=== PATIENT | female | born 1990 | race Hispanic/Latino ===

== ENCOUNTER 2020-11-02 18:38 | Emergency (ER) | payer OTHER, SELFPAY ==
--- NOTE | ~2020-11-02 | XR_ITS ---
EXAMINATION: XR chest 2V 11/02/2020 19:07 INDICATION: Dizziness. Migraine headaches. PROCEDURE: 2 view chest COMPARISON: No prior studies for comparison. FINDINGS: The lungs are clear. The cardiomediastinal silhouette is within normal limits. There are no pleural effusions. There is no pneumothorax suspected. IMPRESSION: 1: NO ACUTE CARDIOPULMONARY DISEASE. Reviewed, dictated and finalized at location A. CTOR STERILE PROCESSING
[2020-11-02 18:42] VITALS: BP 139/94; PULSE 102; RESP 16; TEMP 36.7; O2SAT 98
[2020-11-02 18:46] VITALS: BP 134/89; PULSE 89; RESP 18; O2SAT 99
--- NOTE | 2020-11-02 18:51 | ECG_ITS ---
Measurements Intervals [place] Rate: 90 P: 42 [place]: 179 QRS: 6 QRSD: 85 T: 35 QT: 343 QTc: 420 Interpretive Statements SINUS RHYTHM BASELINE WANDER- II, III, AVL, AVF, V3-V6 NORMAL ECG Electronically Signed On 11-03-2020 7:03:26 FARM ADVISER by Aaron Duggan D.O.
--- NOTE | 2020-11-02 19:30 | ED.HA ---
HPI - Headache General Chief Complaint: Headache Stated Complaint: Headache, L shoulder pain Time Seen by Provider: 11/02/20 19:03 History of Present Illness HPI Narrative: Left sided headache since this morning. Feels like her usual headache. Associated with nausea. Later developed left sided face tingling and pain in the left trapezius radiating down the left arm. Dull. No change with movement. Related Data Allergies Allergy/AdvReac Type Severity Reaction Status Date / Time No Known Allergies Allergy Verified 11/02/20 18:51 Review of Systems Review of Systems: All systems reviewed & are unremarkable except as noted in HPI and below Constitutional: Constitutional: Denies fever(s) and Denies weakness Eyes: Eyes: Reports no additional eye complaints Cardiovascular: Cardiovascular: Denies chest pain Respiratory: Respiratory: Denies dyspnea Gastrointestinal: Gastrointestinal: Denies abdominal pain and Reports nausea Genitourinary: Genitourinary: Reports no additional female genitourinary complaints Neurologic: Denies dizziness, Reports headache(s), Denies numbness and Denies weakness [facility] Past Medical History Medical History (Updated 11/02/20 @ 20:19 by Say Cavazos MD) Acute appendicitis with localized peritonitis without perforation Acute calculous cholecystitis Surgical History Surgical History (Updated 11/02/20 @ 20:16 by Say Cavazos MD) Hx of cholecystectomy Social History Social History (Updated 11/02/20 @ 20:16 by Say Cavazos MD) Smoking status: Never smoker Alcohol intake: current Exam Const: General: healthy appearing, no acute distress and alert Orientation/consciousness: patient oriented x3 HENMT: Head: normal to inspection Eyes: Conjunctivae: conjunctivae normal Pupils: Equal, round and reactive pupils present EOM: EOMs intact bilaterally Neck: Neck: normal visual inspection and no lymphadenopathy Chest: Chest palpation & inspection: no tenderness Resp: Effort & Inspection: normal respiratory effort Auscultation: clear to auscultation bilaterally, no rales, no rhonchi and no wheezes Cardio: Jugular venous distension: no JVD Rate: regular rate Rhythm: regular rhythm Heart sounds: no murmurs GI: Inspection: non-distended GI Palp: Yes Soft to palpation and No Tenderness to palpation present (GI) Back/Spine/Pelvis: Other: Left trapezius tenderness and increased tone Skin: General skin exam: normal color Rashes: no rashes Wounds: no wounds Neuro: General: patient oriented x3, moves all extremities, no meningeal signs, no focal motor deficits and CN's II-XI intact bilaterally Cranial nerves: Yes Nystagmus not present Speech: normal speech Gait exam (Neuro): Normal gait present Other: 5/5 strength throughout. Normal sensation Extrem: General: no edema Psych: Appearance: well kempt Affect: normal affect Course Vital Signs Vital signs: Vital Signs Temperature 36.7 C 11/02/20 18:42 Pulse Rate 102 H 11/02/20 18:42 Respiratory Rate 16 11/02/20 18:42 Blood Pressure 139/94 H 11/02/20 18:42 Pulse Oximetry 98 11/02/20 18:42 Temperature 36.7 C 11/02/20 18:42 Pulse Rate 89 11/02/20 18:46 Respiratory Rate 18 11/02/20 18:46 Blood Pressure 134/89 11/02/20 18:46 Pulse Oximetry 99 11/02/20 18:46 MDM - Headache MDM Narrative Medical decision making narrative: Headache and arm pain resolved with treatment. Differential Diagnosis Differential diagnosis: Likely migraine and tension headache Medical Records Attestation: I reviewed the patient's medical records. Lab Data Attestation: I reviewed the patient's lab results. Result diagrams: 11/02/20 19:30 11/02/20 19:30 Labs: Lab Results 11/02/20 11/02/20 11/02/20 Range/Units 19:30 19:30 19:30 WBC 10.0 (4.5-10.0) K/mm3 RBC 4.50 (4.2-5.4) M/mm3 Hgb 13.8 (12.0-15.0) g/dL Hct 40.8 (37.0-47.0) % MCV 90.7
[2020-11-02 19:37] LABS: Basophils Percent Auto 0.3 % (0.2-1.2); Eosinophils Absolute Auto 0.5 K/mm3 (0-0.3); Eosinophils Percent Auto 5.3 % (0-4.4); Hematocrit 40.8 % (37.0-47.0); Hemoglobin 13.8 g/dL (12.0-15.0); Immature Granulocyte Absolute 0.03 K/mm3 (0.00-0.031); Immature Granulocyte Percent A 0.3 % (0-0.5); Lymphocytes Absolute Auto 3.25 K/mm3 (0.9-3.2); Lymphocytes Percent Auto 32.5 % (18.3-44.2); Mean Corpuscular HGB Conc 33.8 g/dl (32-36); Mean Corpuscular Hemoglobin 30.7 pg (26-34); Mean Corpuscular Volume 90.7 fl (80-100); Mean Platelet Volume 9.8 fl (7.4-10.4); Monocytes Absolute Auto 0.6 K/mm3 (0.1-0.6); Monocytes Percent Auto 5.6 % (2.6-8.5); Neutrophils Absolute Auto 5.6 K/mm3 (1.3-6.7); Platelet Count Result 314 k/mm3 (150-375); Red Cell Distribution Width 12.7 % (11.5-14.5)
[2020-11-02 19:45] LABS: Prothrombin Time 13.3 Seconds (11.1-14.7)
[2020-11-02 19:46] LABS: Partial Thromboplastin Time 29.4 SECONDS (22.3-36.8)
[2020-11-02 19:48] LABS: Anion Gap 5 mmol/L (8-16); Blood Urea Nitrogen 11 mg/dL (7-17); Calcium 8.6 mg/dL (8.4-10.2); Carbon Dioxide 27 mmol/L (22-30); Chloride 108 mmol/L (98-107); Estimated CRCL calculation 111 ml/min; Estimated Glomerular Filt Rate > 60; Glucose 102 mg/dL (65-105); Potassium 3.7 mmol/L (3.4-5.0); Sodium 140 mmol/L (137-145)
[2020-11-02] MEDS: METOCLOPRAMIDE HCL INJ 10 MG/2 ML VIAL IV PUSH (19:56)
[2020-11-02] MEDS: KETOROLAC 30 MG/ML VIAL (*BKC) IV PUSH (19:57)
[2020-11-02] MEDS: diphenhydrAMINE HCl INJ 50 MG/ML VIAL 25 MG IV PUSH (19:57)
[2020-11-02] MEDS: LORazepam INJ (*CRX) 2 MG/ML VIAL 0.5 MG IV PUSH (19:59)
[2020-11-02 20:00] LABS: Troponin I < 0.012 ng/mL (0.000-0.034)
[2020-11-02 22:15] LABS: Troponin I < 0.012 ng/mL (0.000-0.034)
[2020-11-02 22:21] VITALS: BP 119/73; PULSE 72; RESP 16; TEMP 36.3; O2SAT 99
== END 2020-11-02 22:23 | disposition home or self-care (01) ==
PROVIDERS: Emergency Medicine; Emergency Provider Emergency Medicine; PCP Internal Medicine
DX: M54.12 Radiculopathy, cervical region (principal); G44.209 Tension-type headache, unspecified, not intractable
CPT/HCPCS: 36415; 71046; 80048; 84484; 85025; 85610; 85730; 93005; 96365; 96375; 99284; J0131; J1200; J1885; J2060; J2765

== ENCOUNTER 2021-09-11 15:39 | Outpatient (CLI) | payer OTHER, SELFPAY ==
--- NOTE | ~2021-09-11 | XR_ITS ---
EXAMINATION: XR chest 2V EXAM DATE: 09/11/2021 15:52 INDICATION: Atypical chest pain . Central chest pain since April 2021. TECHNIQUE: Frontal and lateral projections of the chest obtained and reviewed. There is no prior paxton dy for comparison. FINDINGS: The lungs are clear. There are no pleural effusions. The cardiomediastinal silhouette is within normal limits. There is no pneumothorax suspected. Mild upper thoracic dextroscoliosis. IMPRESSION: No acute cardiopulmonary findings. Reviewed, dictated and finalized at location G. DRIER OPERATOR
== END 2021-09-11 15:40 ==
PROVIDERS: PCP Internal Medicine; Visit Provider Internal Medicine
DX: R07.89 Other chest pain (principal)
CPT/HCPCS: 71046

== ENCOUNTER 2023-01-07 21:59 | Emergency (ER) | payer OTHER, SELFPAY ==
--- NOTE | ~2023-01-07 | XR_ITS ---
EXAMINATION: XR chest 2V DATE: 01/07/2023 22:20 INDICATION: Shortness breath and chest pain radiating to the upper back TECHNIQUE: PA and lateral views of the chest were obtained. COMPARISON: Chest radiograph dated 09/11/2021 FINDINGS: The lungs are clear with no focal airspace opacities, pulmonary edema, pleural effusion or pneumothor ax. The cardiomediastinal silhouette is normal. Moderate S-shaped curvature of the thoracic spine wit h mild spondylosis. Cholecystectomy clips in right upper quadrant. IMPRESSION: 1. No acute cardiopulmonary disease. Reviewed, dictated and finalized at location A.
--- NOTE | 2023-01-07 21:59 | ECG_ITS ---
Measurements Intervals [place] Rate: 74 P: 46 [place]: 174 QRS: 6 QRSD: 94 T: 29 QT: 368 QTc: 410 Interpretive Statements SINUS RHYTHM NORMAL ECG COMPARED TO ECG 11/02/2020 18:51:32 NO SIGNIFICANT CHANGES Electronically Signed On 01-08-2023 6:39:07 CDT by Aaron Duggan D.O.
[2023-01-07 22:05] VITALS: BP 113/73; PULSE 89; RESP 16; TEMP 36.7; O2SAT 100
[2023-01-07 22:18] LABS: Basophils Percent Auto 0.3 % (0.2-1.2); Eosinophils Absolute Auto 0.4 K/mm3 (0-0.3); Eosinophils Percent Auto 3.4 % (0-4.4); Hematocrit 40.4 % (37.0-47.0); Hemoglobin 13.8 g/dL (12.0-15.0); Immature Granulocyte Absolute 0.05 K/mm3 (0.00-0.031); Immature Granulocyte Percent A 0.4 % (0-0.5); Lymphocytes Absolute Auto 3.45 K/mm3 (0.9-3.2); Mean Corpuscular HGB Conc 34.2 g/dl (32-36); Mean Corpuscular Hemoglobin 30.6 pg (26-34); Mean Corpuscular Volume 89.6 fl (80-100); Monocytes Absolute Auto 0.7 K/mm3 (0.1-0.6); Monocytes Percent Auto 5.6 % (2.6-8.5); Neutrophils Absolute Auto 8.1 K/mm3 (1.3-6.7); Neutrophils Percent Auto 63.3 % (45.5-73.1); Platelet Count Result 314 k/mm3 (150-375); Red Blood Count 4.51 M/mm3 (4.2-5.4); Red Cell Distribution Width 13.1 % (11.5-14.5); White Blood Count 12.8 K/mm3 (4.5-10.0)
[2023-01-07 22:28] LABS: INR 0.9; Prothrombin Time 12.7 Seconds (11.1-14.7)
[2023-01-07 22:29] LABS: Partial Thromboplastin Time 27.9 SECONDS (22.3-36.8)
[2023-01-07 22:36] LABS: Alanine Aminotransferase 22 U/L (6-35); Albumin Level 4.4 g/dL (3.5-5.1); Alkaline Phosphatase 69 U/L (38-126); Anion Gap 7 mmol/L (8-16); Aspartate Amino Transferase 22 U/L (14-36); Bilirubin,Total 0.3 mg/dL (0.2-1.3); Blood Urea Nitrogen 8 mg/dL (7-17); Calcium 8.9 mg/dL (8.4-10.2); Carbon Dioxide 26 mmol/L (22-30); Chloride 105 mmol/L (98-107); Estimated CRCL calculation 109 ml/min; Estimated Glomerular Filt Rate > 60; Glucose 118 mg/dL (65-110); Lipase 102 U/L (23-300); Potassium 3.8 mmol/L (3.4-5.0); Sodium 138 mmol/L (137-145)
[2023-01-07 22:47] LABS: Troponin I < 0.012 ng/mL (0.000-0.034)
[2023-01-08] VITALS (36 sets, daily range): BP systolic 98–125; BP diastolic 44–81; PULSE 69–100; RESP 12–27; TEMP 36.4–36.6; O2SAT 97–100
[2023-01-08] MEDS: ASPIRIN 81 MG CHEWABLE TABLET 324 MG PO (00:06)
--- NOTE | 2023-01-08 02:28 | ED.CHESTPAIN ---
HPI - Chest Pain General Chief Complaint: Chest Pain <KENYA Baires Last Filed: 01/08/23 04:16> Stated Complaint: chest pain <KENYA Baires Last Filed: 01/08/23 04:16> Time Seen by Provider: 01/08/23 00:11 <KENYA Baires Last Filed: 01/08/23 04:16> Source: patient <KENYA Baires Last Filed: 01/08/23 04:16> Mode of arrival: ambulatory <KENYA Baires Last Filed: 01/08/23 04:16> Limitations: no limitations <KENYA Baires Last Filed: 01/08/23 04:16> History of Present Illness HPI narrative: Patient is a 32-year-old female who presents ED with report of left-sided chest pain. Patient first reported having an episode of pain in her left upper chest radiating to her left shoulder and left upper back yesterday. Pain lasted intermittently for about 3 hours before resolving. She experienced another episode of chest pain tonight, which was more severe and persistent, which prompted her presentation. She has not tried anything for the pain. Denies history of similar chest pain. She reports having very mild discomfort with taking a deep breath, no difficulty breathing, shortness of breath, or aggravation of pain with exertion. Denies any nausea, diaphoresis, abdominal pain. Denies any recent fevers, cough or cold symptoms, lower extremity pain or swelling. Patient does not have history of hypertension, hyperlipidemia, diabetes mellitus, family history of heart disease. She is a smoker. She is not on any hormonal control. Denies history of blood clots. <KENYA Baires Last Filed: 01/08/23 04:16> Related Data Allergies/Adverse Reactions: Allergies Allergy/AdvReac Type Severity Reaction Status Date / Time No Known Allergies Allergy Verified 11/02/20 18:51 <KENYA Baires Last Filed: 01/08/23 04:16> Review of Systems Review of Systems: CONSTITUTIONAL: Denies fever, chills, or sweats. ENT: Denies rhinorrhea, congestion, sore throat. CARDIOVASCULAR: See HPI. RESPIRATORY: See HPI. GASTROINTESTINAL: Denies abdominal pain, nausea, vomiting. MUSCULOSKELETAL: See HPI. NEUROLOGIC: Denies headache, numbness, or weakness. <Karley Peña PA-C - Last Filed: 01/08/23 04:16> All systems reviewed & are unremarkable except as noted in HPI and below <Karley Peña PA-C - Last Filed: 01/08/23 04:16> [facility] Past Medical History Medical History: Medical History Acute appendicitis with localized peritonitis without perforation Acute calculous cholecystitis <Karley Peña PA-C - Last Filed: 01/08/23 04:16> Surgical History Surgical History: Surgical History Hx of cholecystectomy <Karley Peña PA-C - Last Filed: 01/08/23 04:16> Social History Social History: Social History Smoking status: Current every day smoker Alcohol intake: current <Karley Peña PA-C - Last Filed: 01/08/23 04:16> Exam Narrative: GENERAL: Well appearing, obese with BMI of 31.5, non-toxic, in no acute distress. HEAD: Normocephalic, atraumatic. NECK: Supple. No adenopathy, no masses. RESPIRATORY: Airway patent, respirations nonlabored. Clear to auscultation bilaterally, no rales, rhonchi, wheezing. CARDIOVASCULAR: Regular rate and rhythm without murmurs, rubs, or gallops. Peripheral pulses 2+ and equal bilaterally. ABDOMINAL: Soft, nontender, nondistended, no hepatosplenomegaly. Normoactive BS. MUSCULOSKELETAL: Moves all extremities. Strength/ROM intact without gross deformities. No chest wall tenderness to palpation. No edema. No calf tenderness. SKIN: Warm, dry, normal color. No rashes. NEURO: A&O X3. Speech clear. Cranial nerves II-XII grossly intact. Steady
[2023-01-08 03:22] LABS: Troponin I < 0.012 ng/mL (0.000-0.034)
== END 2023-01-08 03:59 | disposition home or self-care (01) ==
PROVIDERS: Emergency Medicine; Emergency Provider Physician Assistant; PCP Internal Medicine
DX: R07.89 Other chest pain (principal)
CPT/HCPCS: 36415; 71046; 80053; 83690; 84484; 85025; 85610; 85730; 93005; 99284; A9270

== ENCOUNTER 2025-02-25 05:05 | Emergency (ER) | payer OTHER, SELFPAY ==
--- NOTE | ~2025-02-25 | CT_ITS ---
CT of the Abdomen and Pelvis: Indication: Abdominal pain Technique: 2.5 mm axial scans were obtained through the abdomen and pelvis following intravenous adm inistration of 100 cc of Omnipaque 350. Dose reduction technique was used on this scan by utilizing a utomated exposure control and iterative reconstruction technique. The dose-length product (DLP) was 5 19.08 mGy-cm. Findings: Scans through the lung bases are unremarkable. The liver, spleen, pancreas, adrenals and kidneys are within normal limits. Cholecystectomy clips are present. No evidence of aortic aneurysm. No lymphadenopathy. No bowel obstruction or bowel wall thickening. Probable mildly dilated appendix to 10 mm, adjacent to the right ovary. No abscess or free air. Images through the pelvis were performed. Urinary bladder unremarkable. No significant pelvic/adnexal mass seen. No ascites. Impression: Probable mildly dilated appendix adjacent to the right ovary. Early acute appendicitis is a considera tion. Correlate clinically. No abscess or free air. Reviewed, dictated and finalized at [facility]. Impression: Probable mildly dilated appendix adjacent to the right ovary. Early acute appen dicitis is a consideration. Correlate clinically. No abscess or free air.
--- NOTE | ~2025-02-25 | US_ITS ---
EXAMINATION: US pelvic complete w TV DATE: 02/25/2025 09:40 INDICATION: Abdominal pain. Possible right hydrosalpinx. TECHNIQUE: Multiple transabdominal and endovaginal sonographic images of the pelvis were obtained. COMPARISON: None. FINDINGS: The uterus measures 10.4 x 5.3 x 6.7 cm. The endometrial complex measures 9 mm in thickness. The rig ht ovary measures 3.4 x 2.6 x 2.4 cm. 1.8 cm anechoic right ovarian follicle. Anterior to the right o vary is a 1 cm anechoic likely peritoneal inclusion cyst along the deep margin of the anterior pelvic wall. The left ovary measures 2.8 x 2.0 x 1.9 cm. Basilar flow identified at both ovaries on color D oppler. On the cine images of the right adnexa there is a right hydrosalpinx measuring up to 6 mm in diameter which corresponds to the fluid-filled structure identified on the prior CT. Review of prior CT imaging demonstrates postoperative changes along the short remaining stump of the appendix post pr ior appendectomy. There is no free fluid in the pelvis. IMPRESSION: 1. Uterus and bilateral ovaries are unremarkable with small right hydrosalpinx. Reviewed, dictated and finalized at location [facility].
--- OUTSIDE RECORDS SUMMARY | 2025-02-25 05:07 | XMS_ITS | Patient Health Record ---
Author Organization [facility] [employer] Address [address] [place] [address] Care Team Providers Care Change Management Specialist Name Role Phone CORNELIUS JUAREZ Primary Care Provider Kathryn Wall Unavailable [phone] Allergies No Known Allergies Reason For Referral No Information Medications Medication SIG (Take, Route, Frequency, Duration) Notes Start Date End Date Status Venlafaxine HCl ER 37.5 MG 1 capsule wit h food Orally Once a day; Duration: 7 days 08/10/2024 Active Venlafaxine HCl ER 75 MG 1 capsule with food Orally Once a day; Duration: 30 days 08/10/2024 Active Paxil 40 MG 1 tablet in the morn ing Orally Once a day Active Social History Tobacco Use: Social History Observation Description Date Details (start date - stop date) Current Smoker 08/26/2016 - NA Sex Assigned At : Social History Observation Description Sex Assigned At Female Household Question Answer Notes Marital status: Number of adults in household: 2 Number of children in household: 3 Level of education: finished high school 10th gr [employer] and GED Sexual History Question Answer Notes Had sex in the past 12 months (vaginal, oral, or anal)? Yes with Men only Tobacco Control (Standard) Question Answer Notes Tobacco use: Current smoker When did you start smoking? 08/26/2016 How often do you smoke cigarettes? Every day How many cigarettes a day do you smoke? 6-10 How soon after you wake up d o you smoke your first cigarette? 6-30 minutes Are you interested in quitting? Thinking about q uitting AUDIT-C (Standard) Question Answer Notes Did you have a drink contain ing alcohol in the past year? Yes How often did you have six o r more drinks on one occasion in the past year? Less than monthly (1 point) How many drinks did you have on a typical day when you were drinking in the past year? 1 or 2 drinks (0 point) How often did you have a dri nk containing alcohol in the past year? Monthly or less (1 point) Points 2 Interpretation Negative Problems Problem Type SNOMED Code ICD Code Onset Dates Problem Status W/U Status Risk Notes Problem Primary insomnia (2725757) Primary insomnia (F51.01) Active confirmed Problem Tobacco use (439067911) Tobacco use (Z72.0) Active confirmed Problem Moderate recurrent major depression (45692522) MDD (major depressive disorder), recurrent episode, moderate (F33.1) Active confirmed Problem Generalized anxiety disorder (79375390) Anxiety, generalized (F41.1) Active confirmed Vital Signs Heart Rate 96 /min 08/10/2024 Blood pressure diastolic 93 mm Hg 08/10/2024 Weight-kg 85 kg 08/10/2024 Blood pressure systolic 109 mm Hg 08/10/2024 Weight 187.4 lbs 08/10/2024 Encounters Encounter Location Date Provider Diagnosis [facility] [employer] [facility], [address] [address] 08/10/2024 Kathryn Santiago Tobacco use Z72.0 ; MDD (major depressive disorder), recurrent episode, moderate F33.1 ; Anxiety, generalized F41.1 and Primary insomnia F51.01 [facility] [employer] [address] [address] 09/08/2024 Kathryn Santiago [facility] [employer] [address] [address] 08/11/2024 Kathryn Santiago Assessments Encounter Date Diagnosis (ICD Code) Assessment Notes Treatment Notes Treatment Clinical Notes Section Notes 08/10/2024 Tobacco use (ICD-10 - Z72.0) Deciding About Using Medicines To Quit Smoking material was published, Stopping Smokeless Tobacco Use: Care Instructions material was published, Learning About Benefits of Quitting Smoking material was published, Quitting Tobacco: Care Instructions material was published Presently taking Paxil 40 mg daily 1. Depression Paxil 40 mg daily - no refill needed today Add Effexor 37.5 mg in am for 1 week then increase to Effexor 75 mg daily in am discuss and educated on medication options, educated on all rx, benefits, side effects, risk, obtain labs PCP 2. Anxiety- Paxil 40 mg daily Effexor 3. Tobacco use no Vaping- Do not smoke. Nicotine and other chemicals in cigarettes and cigars can cause lung damage. Ask your healthcare provider for information if you currently smoke and need help to quit. E-cigarettes or smokeless tobacco still contain nicotine. Talk to your healthcare provider before you use these products. education on decrease to stopping nicotine products and stop smoking hotline given 4. Insomnia sleep hygiene refer to therapy MONICA http__s://www.[facility].nih.gov/health/ topics/mental-hea lth-medications http__s://www.nam i.org/About-Menta l-Illness/Treatme nts/Mental-Health -Medications http__s://www.[employer]/tato nirv-zwp-ifvksuff -marijuana-adhd/ http__s://www.nam i.Tindie/About-Menta l-Illness/Mental- Health-Conditions http__s://MyScreen/depress ion/the-cognitive -frrcmbji-sn-pizh ession#treatments http___s://www.[facility].nih.gov/health /topics/mental-he alth-medications http___s://www. mi.org/About-Ment al-Illness/Treatm ents/Mental-Healt h-Medications educated on all medications, benefits, side effects and risk, and educated on depression, anxiety, and ADHD, mood d/o and educated on compliance of medications, metabolic and movement d/o education appointment is, continue therapy discussion with patient about course of treatment and patient instructions. education on serotonin syndrome SSRI/SNRI side effects discussed including but not limited to, gastric upset, nausea, vomiting, diarrhea and/or constipation, weight changes, sexual side effects including loss of libido, increased suicidal thoughts/behavior s in children and young adults, and serotonin syndrome. Second generation antipsychotics (SGAs) have metabolic syndrome issues with weight gain, increase in prolactin, increased waist circumference, increased lipids, and increased glucose. Thus routine monitoring of weight, metabolic labs, etc. is indicated. A general rank ordering of antipsychotics that have the greatest to the least risk of metabolic effects is olanzapine, quetiapine, risperidone, ziprasidone, and aripiprazole. However, weight gain can occur with all of these drugs and considerable variability exists among patients receiving the same drug regarding the risk of metabolic effects. Anti-psychotic agents not only increase the risk of metabolic disorder, they also increase the risk of CVA, akathisia, and movement disorders including EPS or tardive dyskinesia (more common with first generation antipsychotics) and more. Medication Management and Follow-Up - Plan: will schedule in 3-4 weeks to follow up Schedule Therapy schedule MONICA - Schedule follow-up appointments to monitor the patient's response to the medication regimen. - Reinforce the importance of avoiding recreational drug use due to potential neurotoxicity and interactions with prescribed medications. 08/10/2024 MDD (major depressive disorder), recurrent episode, moderate (ICD-10 - F33.1) Preventing Depression From Coming Back: Care Instructions material was published, Depression Treatment: Care Instructions material was published, Learning About Depression Screening material was published Presently taking Paxil 40 mg daily 1. Depression Paxil 40 mg daily - no refill needed today Add Effexor 37.5 mg in am for 1 week then increase to Effexor 75 mg daily in am discuss and educated on medication options, educated on all rx, benefits, side effects, risk, obtain labs PCP 2. Anxiety- Paxil 40 mg daily Effexor 3. Tobacco use no Vaping- Do not smoke. Nicotine and other chemicals in cigarettes and cigars can cause lung damage. Ask your healthcare provider for information if you currently smoke and need help to quit. E-cigarettes or smokeless tobacco still contain nicotine. Talk to your healthcare provider before you use these products. education on decrease to stopping nicotine products and stop smoking hotline given 4. Insomnia sleep hygiene refer to therapy MONICA http__s://www.nim h.nih.gov/health/ topics/mental-hea lth-medications http__s://www.nam i.org/About-Menta l-Illness/Treatme nts/Mental-Health -Medications http__s://www.[employer]/tato fedi-bvw-vklppyma -marijuana-adhd/ http__s://www.nam i.org/About-Menta l-Illness/Mental- Health-Conditions http__s://psychce ntral.com/depress ion/the-cognitive -szgjbdbs-dx-raru ession#treatments http___s://www.ni .nih.gov/health /topics/mental-he alth-medications http___s://www.na mi.org/About-Ment al-Illness/Treatm ents/Mental-Healt h-Medications educated on all medications, benefits, side effects and risk, and educated on depression, anxiety, and ADHD, mood d/o and educated on compliance of medications, metabolic and movement d/o education appointment is, continue therapy discussion with patient about course of treatment and patient instructions. education on serotonin syndrome SSRI/SNRI side effects discussed including but not limited to, gastric upset, nausea, vomiting, diarrhea and/or constipation, weight changes, sexual side effects including loss of libido, increased suicidal thoughts/behavior s in children and young adults, and serotonin syndrome. Second generation antipsychotics (SGAs) have metabolic syndrome issues with weight gain, increase in prolactin, increased waist circumference, increased lipids, and increased glucose. Thus routine monitoring of weight, metabolic labs, etc. is indicated. A general rank ordering of antipsychotics that have the greatest to the least risk of metabolic effects is olanzapine, quetiapine, risperidone, ziprasidone, and aripiprazole. However, weight gain can occur with all of these drugs and considerable variability exists among patients receiving the same drug regarding the risk of metabolic effects. Anti-psychotic agents not only increase the risk of metabolic disorder, they also increase the risk of CVA, akathisia, and movement disorders including EPS or tardive dyskinesia (more common with first generation antipsychotics) and more. Medication Management and Follow-Up - Plan: will schedule in 3-4 weeks to follow up Schedule Therapy schedule MONICA - Schedule follow-up appointments to monitor the patient's response to the medication regimen. - Reinforce the importance of avoiding recreational drug use due to potential neurotoxicity and interactions with prescribed medications. 08/10/2024 Anxiety, generalized (ICD-10 - F41.1) Learning About Generalized Anxiety Disorder material was published, Generalized Anxiety Disorder: Care Instructions material was published, Learning About Anxiety Disorders material was published Presently taking Paxil 40 mg daily 1. Depression Paxil 40 mg daily - no refill needed today Add Effexor 37.5 mg in am for 1 week then increase to Effexor 75 mg daily in am discuss and educated on medication options, educated on all rx, benefits, side effects, risk, obtain labs PCP 2. Anxiety- Paxil 40 mg daily Effexor 3. Tobacco use no Vaping- Do not smoke. Nicotine and other chemicals in cigarettes and cigars can cause lung damage. Ask your healthcare provider for information if you currently smoke and need help to quit. E-cigarettes or smokeless tobacco still contain nicotine. Talk to your healthcare provider before you use these products. education on decrease to stopping nicotine products and stop smoking hotline given 4. Insomnia sleep hygiene refer to therapy MONICA http__s://www.[facility].nih.gov/health/ topics/mental-hea lth-medications http__s://www.nam i.org/About-Menta l-Illness/Treatme nts/Mental-Health -Medications http__s://www.[employer]/tato eyqp-ivh-icmumnhr -marijuana-adhd/ http__s://www.nam i.Tindie/About-Menta l-Illness/Mental- Health-Conditions http__s://MyScreen/depress ion/the-cognitive -srevenea-ot-eaxp ession#treatments http___s://www.[facility].nih.gov/health /topics/mental-he alth-medications http___s://www.na mi.org/About-Ment al-Illness/Treatm ents/Mental-Healt h-Medications educated on all medications, benefits, side effects and risk, and educated on depression, anxiety, and ADHD, mood d/o and educated on compliance of medications, metabolic and movement d/o education appointment is, continue therapy discussion with patient about course of treatment and patient instructions. education on serotonin syndrome SSRI/SNRI side effects discussed including but not limited to, gastric upset, nausea, vomiting, diarrhea and/or constipation, weight changes, sexual side effects including loss of libido, increased suicidal thoughts/behavior s in children and young adults, and serotonin syndrome. Second generation antipsychotics (SGAs) have metabolic syndrome issues with weight gain, increase in prolactin, increased waist circumference, increased lipids, and increased glucose. Thus routine monitoring of weight, metabolic labs, etc. is indicated. A general rank ordering of antipsychotics that have the greatest to the least risk of metabolic effects is olanzapine, quetiapine, risperidone, ziprasidone, and aripiprazole. However, weight gain can occur with all of these drugs and considerable variability exists among patients receiving the same drug regarding the risk of metabolic effects. Anti-psychotic agents not only increase the risk of metabolic disorder, they also increase the risk of CVA, akathisia, and movement disorders including EPS or tardive dyskinesia (more common with first generation antipsychotics) and more. Medication Management and Follow-Up - Plan: will schedule in 3-4 weeks to follow up Schedule Therapy schedule MONICA - Schedule follow-up appointments to monitor the patient's response to the medication regimen. - Reinforce the importance of avoiding recreational drug use due to potential neurotoxicity and interactions with prescribed medications. 08/10/2024 Primary insomnia (ICD-10 - F51.01) Insomnia: Care Instructions material was published, Learning About Sleeping Well material was published Presently taking Paxil 40 mg daily 1. Depression Paxil 40 mg daily - no refill needed today Add Effexor 37.5 mg in am for 1 week then increase to Effexor 75 mg daily in am discuss and educated on medication options, educated on all rx, benefits, side effects, risk, obtain labs PCP 2. Anxiety- Paxil 40 mg daily Effexor 3. Tobacco use no Vaping- Do not smoke. Nicotine and other chemicals in cigarettes and cigars can cause lung damage. Ask your healthcare provider for information if you currently smoke and need help to quit. E-cigarettes or smokeless tobacco still contain nicotine. Talk to your healthcare provider before you use these products. education on decrease to stopping nicotine products and stop smoking hotline given 4. Insomnia sleep hygiene refer to therapy MONICA http__s://www.nim h.nih.gov/health/ topics/mental-hea lth-medications http__s://www.nam i.org/About-Menta l-Illness/Treatme nts/Mental-Health -Medications http__s://www.[employer]/tato gilc-wyd-szvboapl -marijuana-adhd/ http__s://www.nam i.org/About-Menta l-Illness/Mental- Health-Conditions http__s://psychce ntral.com/depress ion/the-cognitive -gwepkxyn-jp-fwyk ession#treatments http___s://www.[facility].nih.gov/health /topics/mental-he alth-medications http___s://www.na mi.org/About-Ment al-Illness/Treatm ents/Mental-Healt h-Medications educated on all medications, benefits, side effects and risk, and educated on depression, anxiety, and ADHD, mood d/o and educated on compliance of medications, metabolic and movement d/o education appointment is, continue therapy discussion with patient about course of treatment and patient instructions. education on serotonin syndrome SSRI/SNRI side effects discussed including but not limited to, gastric upset, nausea, vomiting, diarrhea and/or constipation, weight changes, sexual side effects including loss of libido, increased suicidal thoughts/behavior s in children and young adults, and serotonin syndrome. Second generation antipsychotics (SGAs) have metabolic syndrome issues with weight gain, increase in prolactin, increased waist circumference, increased lipids, and increased glucose. Thus routine monitoring of weight, metabolic labs, etc. is indicated. A general rank ordering of antipsychotics that have the greatest to the least risk of metabolic effects is olanzapine, quetiapine, risperidone, ziprasidone, and aripiprazole. However, weight gain can occur with all of these drugs and considerable variability exists among patients receiving the same drug regarding the risk of metabolic effects. Anti-psychotic agents not only increase the risk of metabolic disorder, they also increase the risk of CVA, akathisia, and movement disorders including EPS or tardive dyskinesia (more common with first generation antipsychotics) and more. Medication Management and Follow-Up - Plan: will schedule in 3-4 weeks to follow up Schedule Therapy schedule MONICA - Schedule follow-up appointments to monitor the patient's response to the medication regimen. - Reinforce the importance of avoiding recreational drug use due to potential neurotoxicity and interactions with prescribed medications. 08/10/2024 Other Learning About Depression Screening material was printed, Venlafaxine Extended Release Oral Capsule (VENLAFAXINE SUSTAINED-RELEA SE - ORAL) material was published Presently taking Paxil 40 mg daily 1. Depression Paxil 40 mg daily - no refill needed today Add Effexor 37.5 mg in am for 1 week then increase to Effexor 75 mg daily in am discuss and educated on medication options, educated on all rx, benefits, side effects, risk, obtain labs PCP 2. Anxiety- Paxil 40 mg daily Effexor 3. Tobacco use no Vaping- Do not smoke. Nicotine and other chemicals in cigarettes and cigars can cause lung damage. Ask your healthcare provider for information if you currently smoke and need help to quit. E-cigarettes or smokeless tobacco still contain nicotine. Talk to your healthcare provider before you use these products. education on decrease to stopping nicotine products and stop smoking hotline given 4. Insomnia sleep hygiene refer to therapy MONICA http__s://www.[facility].nih.gov/health/ topics/mental-hea lth-medications http__s://www.nam i.org/About-Menta l-Illness/Treatme nts/Mental-Health -Medications http__s://www.[employer]/tato pjwk-teo-kctpzlef -marijuana-adhd/ http__s://www.nam i.Tindie/About-Menta l-Illness/Mental- Health-Conditions http__s://MyScreen/depress ion/the-cognitive -cvsxmscf-ke-wmvf ession#treatments http___s://www.[facility].nih.gov/health /topics/mental-he alth-medications http___s://www.na mi.org/About-Ment al-Illness/Treatm ents/Mental-Healt h-Medications educated on all medications, benefits, side effects and risk, and educated on depression, anxiety, and ADHD, mood d/o and educated on compliance of medications, metabolic and movement d/o education appointment is, continue therapy discussion with patient about course of treatment and patient instructions. education on serotonin syndrome SSRI/SNRI side effects discussed including but not limited to, gastric upset, nausea, vomiting, diarrhea and/or constipation, weight changes, sexual side effects including loss of libido, increased suicidal thoughts/behavior s in children and young adults, and serotonin syndrome. Second generation antipsychotics (SGAs) have metabolic syndrome issues with weight gain, increase in prolactin, increased waist circumference, increased lipids, and increased glucose. Thus routine monitoring of weight, metabolic labs, etc. is indicated. A general rank ordering of antipsychotics that have the greatest to the least risk of metabolic effects is olanzapine, quetiapine, risperidone, ziprasidone, and aripiprazole. However, weight gain can occur with all of these drugs and considerable variability exists among patients receiving the same drug regarding the risk of metabolic effects. Anti-psychotic agents not only increase the risk of metabolic disorder, they also increase the risk of CVA, akathisia, and movement disorders including EPS or tardive dyskinesia (more common with first generation antipsychotics) and more. Medication Management and Follow-Up - Plan: will schedule in 3-4 weeks to follow up Schedule Therapy schedule MONICA - Schedule follow-up appointments to monitor the patient's response to the medication regimen. - Reinforce the importance of avoiding recreational drug use due to potential neurotoxicity and interactions with prescribed medications. Plan Of Treatment Pending Test Test Name Order Date UDT 08/10/2024 Insurance Providers Payer Name Payer Address Payer Phone Subscriber Number Group Number Insured Name Patient Relationship to Insured Coverage Start Date Coverage End Date [facility] [address] [place] [address] [id number] SAYDA COLVIN Self - patient is the insured Medical (General) History Medical History History ICD Code Past Psychiatric History: Anxiety Disord er abdominal aortic aneurysm: No atrial fibrillation: No chronic fatigue syndrome: No essential tremor: No hyperlipidemia: No hypertension: No Parkinson's disease: No restless leg syndrome: No stroke: No subdural hematoma: No type 1 diabetes mellitus: No type 2 diabetes mellitus: No vitamin B12 deficiency: No vitamin D deficiency: No Surgical History Surgery Date(Month/Year) appendectomy galbladder removal tubal
--- OUTSIDE RECORDS SUMMARY | 2025-02-25 05:07 | XMS_ITS | Data Portability ---
Author Organization [place] - [facility], Main Office Address [address] [place] [id number] Care Team Providers Care Hydraulic Riveter Name Role Phone JACQUELINE CROFT Primary Care Provider Assessment Encounter Date Assessment Date Assessment LastModified by Organization Details LastModified Time 08/10/2024 08/10/2024 > 75 minutes were spent directly with pt providing high school counselor and care Not available 08/10/2024 15:50:18 11/16/2024 11/16/2024 Pt Position, sitting, Procedure Explained, verbal consent obtained, Standard Precautions Used, 23 g butterfly, Location, RT AC Space, # of Attempts 1, Successful, Pressure and Clean Bandage Applied, No Redness/Swelli ng at Site, Pt Tolerated Well, 2 SST, 2 LAV collected. Automatic Thread Winder: Olga DORMAN. Not available 11/16/2024 12:13:58 Plan of Treatment Reminders Order Date Submit Date Provider Last Modified By Organization Details Last Modified Time Details Appointments InPerson; PE Routine- 60 2024 09:00A M Jacqueline Croft STOCK FEEDER Not available Not available Not available InPerson; Acute Complex 2024 08:30A M Jacqueline Croft STOCK FEEDER Not available Not available Not available Lab Hepatitis C IgG Ab, qual, serum 2024 025 [facility], [address], [address], [place], [address], 11/23/2024 11:11:35 HIV 1 + 2 RNA panel, REYNOLD+probe , serum or plasma 2024 025 [facility], [address], [address], [place], [address], 11/23/2024 11:11:34 TSH, ultra-sen sitive, serum 2024 025 [facility], [address], [address], [place], [address], 11/23/2024 11:11:36 CBC w/ auto diff 2024 025 [facility], [address], [address], [place], [address], 11/23/2024 11:11:31 lipid panel, serum 2024 025 [facility], [address], [address], [place], [address], 11/23/2024 11:11:33 HbA1c (hemoglob in A1c), blood 2024 025 [facility], [address], [address], [place], [address], 11/23/2024 11:11:34 CMP, serum or plasma 2024 025 [facility], [address], [address], [place], [address], 11/23/2024 11:11:32 HbA1c (hemoglob in A1c), blood 2023 024 [facility], [address], [address], [place], [address], 08/11/2024 08:24:05 CMP, serum or plasma 2023 024 [facility], [address], [address], [place], [address], 08/11/2024 08:24:05 lipid panel, serum 2023 024 [facility], [address], [address], [place], [address], 08/11/2024 08:24:05 Referral psychiatr ist referral 2024 025 [email or web address] [facility], [address], [place], [address], 01/11/2025 09:12:02 psychiatr ist referral 2023 024 [facility], [address] [facility] [address], [place], [address], 10/05/2024 09:52:19 Procedures None recorded. Surgeries None recorded. Imaging None recorded. Medication Orders Mounjaro 2.5 mg/0.5 mL subcutane ous pen injector 2024 025 [id number] 0524 [id number], [address], [place], [place], [id number], 11/17/2024 19:15:44 Mounjaro 5 mg/0.5 mL subcutane ous pen injector 2024 025 [email or web address] [facility] #40406, [address], [place], [place], [id number], 11/20/2024 17:09:47 paroxetin e 40 mg tablet [address] [facility], [address], [place], [id number], 11/16/2024 12:36:20 buspirone 10 mg tablet 2024 025 [facility] #67380, [address], [place], [id number], 11/16/2024 12:10:52 venlafaxi ne 75 mg tablet 2023 024 [email or web address] Not available 11/12/2024 14:18:21 meloxicam 7.5 mg tablet 2023 025 [id number], [address] [place], [address], 11/16/2024 12:00:47 cyclobenz aprine 5 mg tablet 2023 025 [id number], [address] [place], [address], 11/16/2024 12:00:47 Patient TargetsNo targets recorded. Patient Instructions Encounter Date Encounter Id Patient Instructions Last Modified By Organization Details Last Modified Time 08/10/2024 [id number] neck spasm: care instructions Not available 08/10/2024 15:23:00 neck spasm: exercises Not available 08/10/2024 15:25:45 neck: exercises Not available 08/10/2024 15:25:45 11/16/2024 [id number] tetanus and diphtheria booster: care instructions Not available 11/16/2024 12:10:47 type 2 diabetes: care instructions Not available 11/16/2024 12:10:47 Reason for Referral Psychiatrist Referral for Mi xed anxiety and depressive disorder Referring Physician: Jacqueline Croft, Family Medicine, Encounter Date: 08/10/2024 Psychiatrist Referral for Mi xed anxiety and depressive disorder Referring Physician: Jacqueline Croft Family Medicine, Encounter Date: 11/16/2024 Results Created Date Observation Date Name Description Value Unit Range Abnormal Flag Note LastModifiedBy Organization Detail LastModifiedTime 08/10/20 24 08/11/2024 COMP. METAB OLIC PANEL (14) glucose COMMEN T mg/dL Test not perfo rmed. Serum was in conta ct with cells when recei dona which will make the resul t inacc urate . Not Available [facility] ([facility]) [address] [facility] [place], [address], 08/11/2024 08:24:04 08/10/20 24 08/11/2024 COMP. METAB OLIC PANEL (14) BUN 11 mg/dL 6-20 normal Not Available [facility] ([facility]) [address] [facility] [place], [address], 08/11/2024 08:24:04 08/10/20 24 08/11/2024 COMP. METAB OLIC PANEL (14) creatinine 0.78 mg/dL 0.57-1 .00 normal Not Available [facility] ([facility]) [address], [place], [address], 08/11/2024 08:24:04 08/10/20 24 08/11/2024 COMP. METAB OLIC PANEL (14) eGFR 101 mL/mi n/1.7 3 >59 normal Not Available [facility] ([facility]) [address], [place], [address], 08/11/2024 08:24:04 08/10/20 24 08/11/2024 COMP. METAB OLIC PANEL (14) BUN/creatini ne ratio 14 9-23 normal Not Available [facility] ([facility]) [address] [place], [address], 08/11/2024 08:24:04 08/10/20 24 08/11/2024 COMP. METAB OLIC PANEL (14) sodium 138 mmol/ L 134-14 4 normal Not Available [facility] ([facility]) [address] [place] [place], [address], 08/11/2024 08:24:04 08/10/20 24 08/11/2024 COMP. METAB OLIC PANEL (14) potassium COMMEN T mmol/ L Test not perfo rmed. Serum was in conta ct with cells when recei dona which will make the resul t inacc urate . Not Available [facility] ([facility]) [address] [facility] [place], [address], 08/11/2024 08:24:04 08/10/20 24 08/11/2024 COMP. METAB OLIC PANEL (14) chloride 101 mmol/ L 96-106 normal Not Available [facility] ([facility]) [address] [facility] [place], [address], 08/11/2024 08:24:04 08/10/20 24 08/11/2024 COMP. METAB OLIC PANEL (14) carbon dioxide, total 19 mmol/ L 20-29 below low normal Not Available [facility] ([facility]) [address] [place] [place], [address], 08/11/2024 08:24:04 08/10/20 24 08/11/2024 COMP. METAB OLIC PANEL (14) calcium 9.6 mg/dL 8.7-10 .2 normal Not Available [facility] ([facility]) [address] [place] [place], [address], 08/11/2024 08:24:04 08/10/20 24 08/11/2024 COMP. METAB OLIC PANEL (14) protein, total 7.6 g/dL 6.0-8. 5 normal Not Available [facility] ([facility]) [address] [place], [address], 08/11/2024 08:24:04 08/10/20 24 08/11/2024 COMP. METAB OLIC PANEL (14) albumin 4.7 g/dL 3.9-4. 9 normal Not Available [facility] ([facility]) [address] [place], [address], 08/11/2024 08:24:04 08/10/20 24 08/11/2024 COMP. METAB OLIC PANEL (14) globulin, total 2.9 g/dL 1.5-4. 5 Not Available [facility] ([facility]) [address] [place], [address], 08/11/2024 08:24:04 08/10/20 24 08/11/2024 COMP. METAB OLIC PANEL (14) bilirubin, total <0.2 mg/dL 0.0-1. 2 Not Available [facility] ([facility]) [address] [place], [address], 08/11/2024 08:24:04 08/10/20 24 08/11/2024 COMP. METAB OLIC PANEL (14) alkaline phosphatase 89 IU/L 44-121 normal Not Available [facility] ([facility]) [address] [place], [address], 08/11/2024 08:24:04 08/10/20 24 08/11/2024 COMP. METAB OLIC PANEL (14) AST (SGOT) 18 IU/L 0-40 normal Not Available [facility] ([facility]) [address] [place], [address], 08/11/2024 08:24:04 08/10/20 24 08/11/2024 COMP. METAB OLIC PANEL (14) ALT (SGPT) 21 IU/L 0-32 normal Not Available [facility] ([facility]) [address] [facility] [place], [address], 08/11/2024 08:24:04 08/10/20 24 08/11/2024 LIPID PANEL W/ CHOL/ HDL RATIO cholesterol, total 215 mg/dL 100-19 9 above high normal Not Available [facility] ([facility]) [address] [facility] [place], [address], 08/11/2024 08:24:05 08/10/20 24 08/11/2024 LIPID PANEL W/ CHOL/ HDL RATIO triglyceride s 398 mg/dL 0-149 above high normal Not Available [facility] ([facility]) [address], [place], [address], 08/11/2024 08:24:05 08/10/20 24 08/11/2024 LIPID PANEL W/ CHOL/ HDL RATIO HDL cholesterol 32 mg/dL >39 below low normal Not Available [facility] ([facility]) [address], [place], [address], 08/11/2024 08:24:05 08/10/20 24 08/11/2024 LIPID PANEL W/ CHOL/ HDL RATIO VLDL cholesterol christiano 69 mg/dL 5-40 above high normal Not Available [facility] ([facility]) [address] [place], [address], 08/11/2024 08:24:05 08/10/20 24 08/11/2024 LIPID PANEL W/ CHOL/ HDL RATIO LDL chol calc ([facility]) 114 mg/dL 0-99 above high normal Not Available [facility] ([facility]) [address], [place], [address], 08/11/2024 08:24:05 08/10/20 24 08/11/2024 LIPID PANEL W/ CHOL/ HDL RATIO LDL calc comment: STOCK FEEDER Not Available [facility] ([facility]) [address], [place], [address], 08/11/2024 08:24:05 08/10/20 24 08/11/2024 LIPID PANEL W/ CHOL/ HDL RATIO T. chol/HDL ratio 6.7 ratio 0.0-4. 4 above high normal T. Chol/ HDL Ratio Men Women 1/2 Avg.R isk 3.4 3.3 Avg.R isk 5.0 4.4 2X Avg.R isk 9.6 7.1 3X Avg.R isk 23.4 11.0 Not Available [facility] ([facility]) [address] [place], [address], 08/11/2024 08:24:05 08/10/20 24 08/11/2024 HGB A1C WITH EAG ESTIM ATION hemoglobin A1C 6.8 % 4.8-5. 6 above high normal Predi abete s: 5.7 - 6.4 Diabe danielle: >6.4 Glyce javed contr ol for adult s with diabe danielle: <7.0 Not Available [facility] ([facility]) [address], [place], [address], 08/11/2024 08:24:05 08/10/20 24 08/11/2024 HGB A1C WITH EAG ESTIM ATION estim. avg glu (EAG) 148 mg/dL Not Available [facility] ([facility]) [address], [place], [address], 08/11/2024 08:24:05 11/17/1911/18/2024 HIV AB/P2 4 AG WITH REFLE X HIV Ab/P24 Ag screen Non Reacti ve non reacti ve HIV-1 /HIV- 2 antib odies and HIV-1 p24 antig en were NOT detec belen. There is no labor atory evide nce of HIV infec tion. HIV Negat lucas Not Available [facility] ([facility]) [address], [place], [address], 11/18/2024 05:12:39 11/17/19 25 11/17/2024 MALISSA EN AUTHO RIZAT ION written authorizatio n Commen t Malissa en Autho rizat ion Recei dona. Autho rizat ion recei dona from JCARLOS OCONNELL NP 11-17 Logge d by Gladis Nowli n Not Available [facility] ([facility]) [address], [place], [address], 11/18/2024 05:12:39 11/17/19 25 11/17/2024 CBC WITH DIFFE RENTI AL/PL ATELE T WBC 7.7 x10e3 /uL 3.4-10 .8 normal Not Available [facility] ([facility]) [address], [place], [address], 11/23/2024 11:11:31 11/17/19 25 11/17/2024 CBC WITH DIFFE RENTI AL/PL ATELE T RBC 4.55 x10e6 /uL 3.77-5 .28 normal Not Available [facility] ([facility]) [address] [place], [address], 11/23/2024 11:11:31 11/17/19 25 11/17/2024 CBC WITH DIFFE RENTI AL/PL ATELE T hemoglobin 12.9 g/dL 11.1-1 5.9 normal Not Available [facility] ([facility]) [address] [place], [address], 11/23/2024 11:11:31 11/17/19 25 11/17/2024 CBC WITH DIFFE RENTI AL/PL ATELE T hematocrit 39.4 % 34.0-4 6.6 normal Not Available [facility] ([facility]) [address] [place], [address], 11/23/2024 11:11:31 11/17/19 25 11/17/2024 CBC WITH DIFFE RENTI AL/PL ATELE T MCV 87 fL 79-97 normal Not Available [facility] ([facility]) [address] [place], [address], 11/23/2024 11:11:31 11/17/19 25 11/17/2024 CBC WITH DIFFE RENTI AL/PL ATELE T MCH 28.4 pg 26.6-3 3.0 normal Not Available [facility] ([facility]) [address] [place], [address], 11/23/2024 11:11:31 11/17/19 25 11/17/2024 CBC WITH DIFFE RENTI AL/PL ATELE T MCHC 32.7 g/dL 31.5-3 5.7 normal Not Available [facility] ([facility]) [address] [place], [address], 11/23/2024 11:11:31 11/17/19 25 11/17/2024 CBC WITH DIFFE RENTI AL/PL ATELE T RDW 13.7 % 11.7-1 5.4 Not Available [facility] ([facility]) [address] [facility], [place], [address], 11/23/2024 11:11:31 11/17/19 25 11/17/2024 CBC WITH DIFFE RENTI AL/PL ATELE T platelets 397 x10e3 /uL 150-45 0 normal Not Available [facility] ([facility]) [address] [facility], [place], [address], 11/23/2024 11:11:31 11/17/19 25 11/17/2024 CBC WITH DIFFE RENTI AL/PL ATELE T neutrophils 64 % not estab. normal Not Available [facility] ([facility]) [address], [place], [address], 11/23/2024 11:11:31 11/17/19 25 11/17/2024 CBC WITH DIFFE RENTI AL/PL ATELE T lymphs 28 % not estab. normal Not Available [facility] ([facility]) [address], [place], [address], 11/23/2024 11:11:31 11/17/1911/17/2024 CBC WITH DIFFE RENTI AL/PL ATELE T monocytes 6 % not estab. normal Not Available [facility] ([facility]) [address] [facility], [place], [address], 11/23/2024 11:11:31 11/17/19 25 11/17/2024 CBC WITH DIFFE RENTI AL/PL ATELE T eos 2 % not estab. normal Not Available [facility] ([facility]) [address] [facility], [place], [address], 11/23/2024 11:11:31 11/17/19 25 11/17/2024 CBC WITH DIFFE RENTI AL/PL ATELE T basos 0 % not estab. normal Not Available [facility] ([facility]) [address] [place], [address], 11/23/2024 11:11:31 11/17/19 25 11/17/2024 CBC WITH DIFFE RENTI AL/PL ATELE T immature cells STOCK FEEDER Not Available [facility] ([facility]) [address] [place], [address], 11/23/2024 11:11:31 11/17/19 25 11/17/2024 CBC WITH DIFFE RENTI AL/PL ATELE T neutrophils (absolute) 4.8 x10e3 /uL 1.4-7. 0 normal Not Available [facility] ([facility]) [address] [place], [address], 11/23/2024 11:11:31 11/17/19 25 11/17/2024 CBC WITH DIFFE RENTI AL/PL ATELE T lymphs (absolute) 2.2 x10e3 /uL 0.7-3. 1 normal Not Available [facility] ([facility]) [address] [place], [address], 11/23/2024 11:11:31 11/17/19 25 11/17/2024 CBC WITH DIFFE RENTI AL/PL ATELE T monocytes(ab solute) 0.4 x10e3 /uL 0.1-0. 9 normal Not Available [facility] ([facility]) [address] [place], [address], 11/23/2024 11:11:31 11/17/19 25 11/17/2024 CBC WITH DIFFE RENTI AL/PL ATELE T eos (absolute) 0.2 x10e3 /uL 0.0-0. 4 normal Not Available [facility] ([facility]) [address] [place], [address], 11/23/2024 11:11:31 11/17/19 25 11/17/2024 CBC WITH DIFFE RENTI AL/PL ATELE T baso (absolute) 0.0 x10e3 /uL 0.0-0. 2 normal Not Available [facility] ([facility]) [address] [facility], [place], [address], 11/23/2024 11:11:31 11/17/19 25 11/17/2024 CBC WITH DIFFE RENTI AL/PL ATELE T immature granulocytes 0 % not estab. Not Available [facility] ([facility]) [address] [facility], [place], [address], 11/23/2024 11:11:31 11/17/19 25 11/17/2024 CBC WITH DIFFE RENTI AL/PL ATELE T immature grans (abs) 0.0 x10e3 /uL 0.0-0. 1 Not Available [facility] ([facility]) [address] [facility], [place], [address], 11/23/2024 11:11:31 11/17/19 25 11/17/2024 CBC WITH DIFFE RENTI AL/PL ATELE T NRBC STOCK FEEDER Not Available [facility] ([facility]) [address] [facility], [place], [address], 11/23/2024 11:11:31 11/17/19 25 11/17/2024 CBC WITH DIFFE RENTI AL/PL ATELE T hematology comments: STOCK FEEDER Not Available [facility] ([facility]) [address] [facility], [place], [address], 11/23/2024 11:11:31 11/17/19 25 11/17/2024 COMP. METAB OLIC PANEL (14) glucose 127 mg/dL 70-99 above high normal Not Available [facility] ([facility]) [address] [facility], [place], [address], 11/23/2024 11:11:32 11/17/19 25 11/17/2024 COMP. METAB OLIC PANEL (14) BUN 9 mg/dL 6-20 normal Not Available [facility] ([facility]) [address] [place], [address], 11/23/2024 11:11:32 11/17/19 25 11/17/2024 COMP. METAB OLIC PANEL (14) creatinine 0.65 mg/dL 0.57-1 .00 normal Not Available [facility] ([facility]) [address] [facility], [place], [address], 11/23/2024 11:11:32 11/17/19 25 11/17/2024 COMP. METAB OLIC PANEL (14) eGFR 117 mL/mi n/1.7 3 >59 normal Not Available [facility] ([facility]) [address] [facility], [place], [address], 11/23/2024 11:11:32 11/17/19 25 11/17/2024 COMP. METAB OLIC PANEL (14) BUN/creatini ne ratio 14 9-23 normal Not Available [facility] ([facility]) [address] [place], [address], 11/23/2024 11:11:32 11/17/19 25 11/17/2024 COMP. METAB OLIC PANEL (14) sodium 136 mmol/ L 134-14 4 normal Not Available [facility] ([facility]) [address] [place], [address], 11/23/2024 11:11:32 11/17/19 25 11/17/2024 COMP. METAB OLIC PANEL (14) potassium 4.3 mmol/ L 3.5-5. 2 normal Not Available [facility] ([facility]) [address] [place], [address], 11/23/2024 11:11:32 11/17/19 25 11/17/2024 COMP. METAB OLIC PANEL (14) chloride 102 mmol/ L 96-106 normal Not Available [facility] ([facility]) [address] [place], [address], 11/23/2024 11:11:32 11/17/19 25 11/17/2024 COMP. METAB OLIC PANEL (14) carbon dioxide, total 22 mmol/ L 20-29 normal Not Available [facility] ([facility]) [address] [facility], [place], [address], 11/23/2024 11:11:32 11/17/19 25 11/17/2024 COMP. METAB OLIC PANEL (14) calcium 9.7 mg/dL 8.7-10 .2 normal Not Available [facility] ([facility]) [address] [facility], [place], [address], 11/23/2024 11:11:32 11/17/19 25 11/17/2024 COMP. METAB OLIC PANEL (14) protein, total 7.4 g/dL 6.0-8. 5 normal Not Available [facility] ([facility]) [address] [place], [address], 11/23/2024 11:11:32 11/17/19 25 11/17/2024 COMP. METAB OLIC PANEL (14) albumin 4.5 g/dL 3.9-4. 9 normal Not Available [facility] ([facility]) [address] [place], [address], 11/23/2024 11:11:32 11/17/19 25 11/17/2024 COMP. METAB OLIC PANEL (14) globulin, total 2.9 g/dL 1.5-4. 5 Not Available [facility] ([facility]) [address] [place], [address], 11/23/2024 11:11:32 11/17/19 25 11/17/2024 COMP. METAB OLIC PANEL (14) bilirubin, total <0.2 mg/dL 0.0-1. 2 Not Available [facility] ([facility]) [address] [facility] [place], [address], 11/23/2024 11:11:32 11/17/19 25 11/17/2024 COMP. METAB OLIC PANEL (14) alkaline phosphatase 76 IU/L 44-121 normal Not Available [facility] ([facility]) [address] [facility] [place], [address], 11/23/2024 11:11:32 11/17/19 25 11/17/2024 COMP. METAB OLIC PANEL (14) AST (SGOT) 19 IU/L 0-40 normal Not Available [facility] ([facility]) [address] [place], [address], 11/23/2024 11:11:32 11/17/19 25 11/17/2024 COMP. METAB OLIC PANEL (14) ALT (SGPT) 27 IU/L 0-32 normal Not Available [facility] ([facility]) [address] [place], [address], 11/23/2024 11:11:32 11/17/19 25 11/17/2024 LIPID PANEL W/ CHOL/ HDL RATIO cholesterol, total 227 mg/dL 100-19 9 above high normal Not Available [facility] ([facility]) [address] [place], [address], 11/23/2024 11:11:33 11/17/19 25 11/17/2024 LIPID PANEL W/ CHOL/ HDL RATIO triglyceride s 493 mg/dL 0-149 above high normal Not Available [facility] ([facility]) [address] [place], [address], 11/23/2024 11:11:33 11/17/19 25 11/17/2024 LIPID PANEL W/ CHOL/ HDL RATIO HDL cholesterol 27 mg/dL >39 below low normal Not Available [facility] ([facility]) [address] [place], [address], 11/23/2024 11:11:33 11/17/19 25 11/17/2024 LIPID PANEL W/ CHOL/ HDL RATIO VLDL cholesterol christiano 86 mg/dL 5-40 above high normal Not Available [facility] ([facility]) [address] [place], [address], 11/23/2024 11:11:33 11/17/19 25 11/17/2024 LIPID PANEL W/ CHOL/ HDL RATIO LDL chol calc ([facility]) 114 mg/dL 0-99 above high normal Not Available [facility] ([facility]) [address] [place], [address], 11/23/2024 11:11:33 11/17/19 25 11/17/2024 LIPID PANEL W/ CHOL/ HDL RATIO LDL calc comment: STOCK FEEDER Not Available [facility] ([facility]) [address] [place], [address], 11/23/2024 11:11:33 11/17/19 25 11/17/2024 LIPID PANEL W/ CHOL/ HDL RATIO T. chol/HDL ratio 8.4 ratio 0.0-4. 4 above high normal T. Chol/ HDL Ratio Men Women 1/2 Avg.R isk 3.4 3.3 Avg.R isk 5.0 4.4 2X Avg.R isk 9.6 7.1 3X Avg.R isk 23.4 11.0 Not Available [facility] ([facility]) [address] [place], [address], 11/23/2024 11:11:33 11/17/19 25 11/17/2024 HGB A1C WITH EAG ESTIM ATION hemoglobin A1C 7.5 % 4.8-5. 6 above high normal Predi abete s: 5.7 - 6.4 Diabe danielle: >6.4 Glyce javed contr ol for adult s with diabe danielle: <7.0 Not Available [facility] ([facility]) [address] [place], [address], 11/23/2024 11:11:34 11/17/19 25 11/17/2024 HGB A1C WITH EAG ESTIM ATION estim. avg glu (EAG) 169 mg/dL Not Available [facility] ([facility]) [address] [facility], [place], [address], 11/23/2024 11:11:34 11/17/19 25 11/19/2024 HIV-1 /HIV- 2 QUALI TATIV E RNA HIV-1 RNA COMMEN T Test not perfo rmed. No froze n serum recei dona. Not Available [facility] ([facility]) [address] [facility], [place], [address], 11/23/2024 11:11:34 11/17/19 25 11/19/2024 HIV-1 /HIV- 2 QUALI TATIV E RNA HIV-2 RNA TNP Test not perfo rmed Not Available [facility] ([facility]) [address] [facility], [place], [address], 11/23/2024 11:11:34 11/17/19 25 11/17/2024 HCV ANTIB JEWEL RFX TO QUANT PCR HCV Ab Non Reacti ve non reacti ve Not Available [facility] ([facility]) [address] [place], [address], 11/23/2024 11:11:35 11/17/19 25 11/17/2024 HCV ANTIB JEWEL RFX TO QUANT PCR interpretati on: Commen t Not infec belen with HCV unles s early or acute infec tion is suspe cted (whic h may be delay ed in an immun ocomp romis ed indiv idual ), or other evide nce exist s to indic ate HCV infec tion. Not Available [facility] ([facility]) [address] [facility], [place], [address], 11/23/2024 11:11:35 11/17/19 25 11/17/2024 TSH TSH 1.030 uIU/m L 0.450- 4.500 normal Not Available [facility] ([facility]) [address] [facility], [place], [address], 11/23/2024 11:11:36 11/17/1911/19/2024 SPECI MEN STATU S REPOR T specimen status report COMMEN T Test not perfo rmed. No froze n serum recei dona. TEST: [id number] 5 HIV-1 /HIV- 2 Quali tativ e RNA Not Available [facility] ([facility]) [address] [facility], [place], [address], 11/23/2024 11:11:37 Result Notes None recorded. Problems Name Problem SNOMED Code Status Onset Date Resolution Date Notes Provider Name and Address Organization Details Recorded Time Prediabet es 784834086 Active 2023 Jacqueline Voyda [address], [facility] [place], [address] , [place] - [facility] 4 14:23:46 Mixed anxiety and depressiv e disorder 833226067 Active 2023 Jacqueline Voyda [address], [facility] [place], [address] , [place] - [facility] 4 14:23:55 Cigarette smoker 10967786 Active 2023 Jacqueline Voyda [address], [facility] [place], [address] , [place] [facility] 4 14:24:15 Hyperlipi demia 04692297 Active Descripti on: Other hyperlipi demia Not Available [facility] 5 04:15:02 Nicotine dependenc e 46414885 Active Problem Code: F17.200; Problem Code Type: ICD-10; Not Available [facility] 5 04:15:02 Family history of diabetes mellitus 625294270 Active Problem Code: Z83.3; Problem Code Type: ICD-10; Not Available [facility] 5 04:15:02 Anxiety 77695586 Active Problem Code: F41.8; Problem Code Type: ICD-10; Not Available [facility] 04:15:03 Body mass index 30+ - obesity 703956084 Active Descripti on: Obesity (BMI 30-39.9) Not Available [facility] 04:15:03 Type 2 diabetes mellitus without complicat ion 596709830 Active 2024 Jacqueline Croft [address], [place], [address] , [place] - [facility] 12:02:19 Unintenti onal weight gain 21607624031 4104 Active 2024 Jacqueline Mariea [address], [place], [address] , [place] - [facility] 12:17:05 Notes:Some problems listed i n Documents: #[id number], #[id number] could not be added to this patient's chart. Please review these documents and add these problems to the patient's chart manually as needed. Problem Notes None recorded. Procedures Surgical History Date Name Laterality Status Provider Name and Address Organization Details Recorded Time 08/26/19 19 appendectomy completed Not Available [facility] 07/01/2024 13:44:44 08/26/19 19 cholecystectomy completed Not Available [facility] 07/01/2024 13:44:44 08/26/19 14 ligation of fallopian tube completed Not Available [facility] 07/01/2024 13:44:45 Imaging Results None recorded. Procedure Notes None recorded. Medical Equipment None Reported. Allergies No known drug allergies Medications Name Sig Start Date Stop Date Status Note LastModified by Organization Details LastModified Time metformin 500 mg tablet Take 1 tablet every day by oral route. 11/16 completed insomnia ; anxiety Not Available Not Available Not Available venlafaxi ne ER 37.5 mg capsule,e xtended release 24 hr 11/12 completed Not Available Not Available Not Available venlafaxi ne ER 75 mg capsule,e xtended release 24 hr 11/12 completed Not Available Not Available Not Available venlafaxi ne 75 mg tablet Take 1 tablet every day by oral route as needed. 11/12 completed Not Available Not Available Not Available fluconazo le 150 mg tablet 1 tablet now , Orally 08/10 completed Encounte r Date: 04/23/20 24Status : 'Taking' ; Not Available Not Available Not Available meloxicam 7.5 mg tablet TAKE 1 TABLET BY MOUTH ONCE DAILY WITH FOOD NEEDED FOR PAIN 11/16 completed Not Available Not Available Not Available gentamici n 0.3 % eye drops INSTILL 1 DROP INTO AFFECTED EYE(S) BY OPHTHALM IC ROUTE EVERY 4 HOURS 08/10 completed Not Available Not Available Not Available ciproflox acin 0.3 % eye drops 2 drops into affected eye four times per day , [facility] 2022 active Encounte r Date: 09/10/19 Status: 'Not-Dimitri ing'; Not Available Not Available Not Available Nicoderm CQ 14 mg/24 hr daily transderm al patch Apply 1 patch every day by transder mal route. 08/10 completed Not Available Not Available Not Available paroxetin e 20 mg tablet 2 tablet in the morning Once a day , Orally 11/16 completed Not Available Not Available Not Available venlafaxi ne 37.5 mg tablet Take 1 tablet every day by oral route as directed for 7 days. 11/12 completed Not Available Not Available Not Available buspirone 10 mg tablet Take 1 tablet twice a day by oral route for 30 days. 2024 active Not Available Not Available Not Avai lable paroxetin e 40 mg tablet Take 1 tablet every day by oral route. 2024 active Not Available Not Available Not Avai lable sertralin e 50 mg tablet 2 tab daily , Orally 2023 active Encounte r Date: 11/28/19 Status: 'Stop'; Not Available Not Available Not Available amoxicill in 875 mg-potass ium clavulana te 125 mg tablet 1 tablet every 12 hrs , Orally 2022 active Encounte r Date: 09/10/19 Status: 'Not-Dimitri ing'; Not Available Not Available Not Available cyclobenz aprine 5 mg tablet TAKE 1 TABLET BY MOUTH IN THE EVNING NEEDED FOR MUSCLE SPASM 11/16 completed Not Available Not Available Not Available Mounjaro 5 mg/0.5 mL subcutane ous pen injector 2.5 mg SC qwk x4wk, then 5 mg SC qwk 2024 active Not Available Not Available Not Avai ebonile Mounjaro 2.5 mg/0.5 mL subcutane ous pen injector Inject 2.5 mg every week by subcutan eous route for 28 days. 2024 active Per Linda at [facility] PA# [id number] ; fax[facility] clinical s today [facility] per Linda request. Not Available Not Available Not Available Vitals Date Recorded Body height Body mass index (BMI) Body weight Heart rate Body temperature Oxygen saturation Oxygen saturation in Arterial blood by Pulse oximetry Heart rate Respiratory rate Systolic blood pressure Diastolic blood pressure Provider Name and Address Organization Details Last Updated DateTime 5 161.29 cm 33.7 kg/m2 14922.3 3 g 92 /min 97.9 [degF] 99 % 99 % 92 /min 12 /min 126 mm[Hg] 83 mm[Hg] Bharti Stinson [place] - [facility] 5 11:36:17 Date Recorded Heart rate Heart rate Provider Name and Address Organization Details Last Updated DateTime 08/10/2024 107 /min 90 /min Jacqueline Croft [address], [place], [address], [place] [facility] 08/10/2024 14:47:41 Date Recorded Body height Body mass index (BMI) Body weight Body temperature Respiratory rate Oxygen saturation Oxygen saturation in Arterial blood by Pulse oximetry Systolic blood pressure Diastolic blood pressure Provider Name and Address Organization Details Last Updated DateTime 4 161.29 cm 32.8 kg/m2 67657.8 g 99 [degF] 16 /min 98 % 98 % 136 mm[Hg] 85 mm[Hg] Bharti Stinson [place] [facility] 4 14:11:33 Social History None recorded. Functional Status None recorded. Mental Status None recorded. Family History Relationship Description Onset Age of this Age Resolved Age Notes LastModified by Organization Details LastModified Time Sister Essential hypertension YOUNGE R THAN PT Not available 08/10/2024 14:23:22 Sister Alive Younge r than PT Not available 08/14/2024 19:04:13 Sister Alive [email or web address] Not available 1 10/15/2023 19:04:14 Sister Alive Not available 1 10/15/2023 19:04:16 Brother Alive Older than PT [email or web address] Not available 08/14/2024 19:03:50 Brother Alive Not available 08/14/2024 19:04:18 Brother Alive [email or web address] Not available 08/14/2024 19:04:20 Father Alive Health y Not available 08/14/2024 19:05:16 Mother Alive Health y [email or web address] Not available 08/14/2024 19:05:21 Daughter Diabetes mellitus Not available 2023 19:04:48 Notes:*Relative: Daughter*Pr oblem: alive, [id number]: 'Daughter(s)'; Medical History Condition Response Diabetes Type II Anxiety Y Depression Y Gynecological History Statement/Question Response Date of LMP 03/24/2024 Sexually Active? Yes Menses Monthly Y STIs/STDs N Date of Last Pap Smear Current Control Method Tubal Ligat ion Age at Menarche 7 Obstetrics History GPAL:G 5 P 0 0 1 4 Type Value Multiple Births 0 Full Term 0 Induced 0 Spontaneous 1 Premature 0 Living 4 Ectopics 0 Total 5 Immunizations Vaccine Type Date Status Note Provider Nam e and Address Organization Details Recorded Time Td 11/16/2024 completed Jacqueline Croft NP [facility] [address], [place], [address], [place] - [facility] 11/16/2024 15:08:11 Tdap 11/16/2024 completed Bharti so [place] - [facility] 11/16/2024 12:46:24 Past Encounters Encounter ID Performer Location Encounter Start Date Encounter Closed Date Diagnosis/Indication Diagnosis SNOMED-CT Code Diagnosis ICD10 Code Diagnosis Note [id number] Jacqueline Croft NP [facility] [address] [place] [address] 08/10/2024 14:00:56 08/10/2024 15:46:57 Mixed anxiety and depressive disorder 251638314 F41.8 04/21/24 PHQ 6, SHARMILA 7 which were improved.N ow 08/10/24 PHQ 20, SHARMILA 18, SI but denies interest or intent to self-harm in any way.Pt is taking paroxetine QD as rx'd, no AE or concerns.S ignificant increase in SHARMILA/Depr ssx likely d/t family concerns with both daughters, son, brother, and 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 All questions and concerns were addressed. F/U 2 weeks and PRN. Prediabetes 494971908 R7 3.03 01/2024 a1c at 6.2, rx'd metformin 500mg QD.Pt does not take metformin as rx'd, states she now has unquenchab le thirst, increased appetite, and dry mouth.Pt agreeable to lab draw today for a1c, cmp, lipid panel.She is NONfasting this afternoon. Encouraged her to incorporat e metformin into daily routine as she does paroxetine rx.Pt is keenly aware of food choices recommende d for DM as her eldest daughter was dx'd DM a few years ago.I will call pt with lab results when rec'd. Muscle spa sm of cervical muscle of neck 4971565889 04 M62.838 Will have pt start NSAID QD with food and muscle relaxer at night PRN for muscle spasm and pain.Dinner Lab so we are unable to dispense.C VS at [employer] appear to show both of these meds on their $4 list.Pt agreeable to cigar packer and picker meds there.Enco uraged frequent gentle neck/back stretching and ROM exercises - printed, reviewed, and provided.P t will notify us if ssx fail to improve or worsen. [id number] Jacqueline Croft NP [facility] [address] [place] [address] 08/13/2024 12:41:46 08/13/2024 17:25:38 Prediabetes 610436317 R73.03 07/2024 a1c now at 6.8, last 01/2024 a1c at 6.2, rx'd metformin 500mg QD.Pt does not take metformin as rx'd, states she now has unquenchab le thirst, increased appetite, and dry mouth.Pt aware preDM is now considered DM, and she needs to more seriously consider choices affecting her health.Enc ouraged daily 500mg metformin use, ADA diet, daily exercise, and weight loss efforts.Re peat labs 3 months.Pt is keenly aware of food choices recommende d for DM as her eldest daughter was dx'd DM a few years ago. 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 Call placed to pharmacy to clarify Rx - venlafaxin e 37.5mg QD x7 days, then 75mg QD. Pt wishes to cigar packer and picker rx her for MH benefit coverage.C PM unless directed otherwise by psychiatry - do not stop abruptly.P t is not interested in CBT at this time.Pt verbalised understand ing and agreement with above POC. All questions and concerns were addressed. F/U 2 weeks as scheduled 08/27/24 and PRN. Muscle spa sm of cervical muscle of neck 0644386294 04 M62.838 Pt reports no improvemen t in pain with rx'd meloxicam and cyclobenza marcelino.She has self-sched uled with chiropract or for this afternoon. Encouraged frequent gentle neck/back stretching and ROM exercises - printed, reviewed, and provided.C onsider PT referral if no improvemen t.Will call Saturday for F/U. [id number] Jacqueline Croft [facility], [facility] [address] [place] [address] 11/16/2024 11:23:18 11/16/2024 15:43:57 Mixed anxiety and depressive disorder 151977113 F41.8 11/16/24 PHQ 2, improved. SHARMILA 18, increased. Compared to 04/21/24 PHQ , SHARMILA 76.Pt denies SI, HI, and panic attacks.Pt is taking paroxetine QD as rx'd, no AE or concerns.Rich ochoa wishes to continue paroxetine , and is agreeable to add buspirone. Encouraged her to F/U with psychiatry , however she reports she attended 1 visit 08/10/24 to walk-in clinic at [facility] psychiatry clinic in [place], [place] and not returning. They Rx'd venlafaxin e, however she did not take this.She thinks she'll be more likely to continue efforts at psychiatry with virtual visits - referral for [facility].CPM unless directed otherwise by psychiatry - do not stop abruptly.Rich ochoa is not interested in CBT at this time.Pt verbalised understand ing and agreement with above POC. All questions and concerns were addressed. F/U 3 weeks and PRN. Type 2 tahmina betes mellitus without complication 483373088 E11.9 07/2024 a1c now at 6.8, last 01/2024 a1c at 6.2.Urine microalbum in discussed however pt unable to provide sample, will collect with next OV.Pt reports SE insomnia and increased anxiety with metformin use, she hasn't taken this in a few months.She does have ssx DM - polydipsia , polyuria, polyphagia , diaphoresi s.Recommen d annual DM eye exam.Advis ed daily foot checks.As pt reports intoleranc e to metformin will start mounjaro if her insurance covers it.Encoura ged ADA diet, daily exercise, and weight loss efforts.RT C and labs 3 months.Pt is keenly aware of food choices recommende d for DM as her eldest daughter was dx'd DM a few years ago. Administra tion of diphtheria, pertussis, and tetanus vaccine 598678927 Z23 Unknown last tdap. Likely she did have tdap booster when , however youngest child is 10 years old. Pt agreeable to this today. Viral screening 58596032 4 Z11.59 Pt never had screening for HCV HIV to her knowledge. Likely she did have these done when , however youngest child is 10 years old. Unintentio nal weight gain 6358754913 59764 R63.5 Will recheck labs, however suspect this is r/t uncontroll ed DM especially given pt has been non-compli ant with metformin and ADA recommenda tions. Health Concerns Section Related Observation LastModified by Organization Detai ls LastModified Time None Recorded Concern Status LastModified by Organization Details LastModified Time None Recorded Advance Directives Directive None Recorded Payers Insurance Date Sequence Insurance Name Policy Number Policy Gutierrez Covered Member ID Gutierrez Member ID Guarantor Name 11/06/2024 [place] [id number] [place] [address] - ALL - PLAN PARTICIPANT - (MOVED-BILLED ) [id number] Dev Renee NO_INS_NUMBER_A VAILABLE Theresa Torres 09/04/2024 [place] [id number] [place] 110 - ALL - PLAN PARTICIPANT - (MOVED-BILLED ) [id number] Dev Renee [id number] Theresa Torres 09/10/2024 [place] [id number] [place] 110 - ALL - PLAN PARTICIPANT - (MOVED-BILLED ) [id number] Dev Renee [id number] Theresa Torres 12/14/2024 [place] [id number] [place] 110 - ALL - PLAN PARTICIPANT - (MOVED-BILLED ) [id number] Dev Renee [id number] Theresa [facility] 07/10/2024 [place] [id number] [place] 110 - ALL - PLAN PARTICIPANT - (MOVED-BILLED ) UNKNOWN Dev Renee UNKNOWN [facility] 08/12/2024 [place] [id number] [place] 110 - ALL - PLAN PARTICIPANT - (MOVED-BILLED ) [id number] Dev Renee [id number] Theresa Torres 06/29/2024 1 *SELF PAY* UNKNOWN Dev Renee UNKNOWN Theresa Torres 07/02/2024 1 *SELF PAY* UNKNOWN Dev Renee UNKNOWN Theresa Torres 08/28/2024 [place] [id number] [place] - ALL - PLAN PARTICIPANT - (MOVED-BILLED ) [id number] Dev Renee [id number] Theresa Torres 10/01/2024 [facility] [employer] [facility] AND 110 - ALL - PLAN PARTICIPANT - (MOVED-BILLED ) [id number] Dev Renee [id number] Theresa Torres 10/26/2024 [facility] - ALL - PLAN PARTICIPANT - (MOVED-BILLED ) [id number] Dev Renee [id number] Theresa Torres Notes Date Note Type Note Provider Name and Address Organization Details Recorded Time 08/10/2024 text/html Pt presents for c/o numbness down arm to thumb.O: x3 days.L: rightD: constant.C: tip of R thumb is numb. No pain in hand or lower arm, but pain is from elbow up to shoulder and neck. Similar to when anxiety was really bad before but this is more sharp.A: movement.R: reduced pain w/Tylenol or AleveT: Tylenol or AleveS: 03/04 if no meds, 3/10 with meds.R hand dominant. C/O increased stress r/t family issues.Her younger daughter has been bullied at school all year. Pt has been going back and forth with police and school trying to end this situation.Her youngest son was suspended for being involved with sister's bully situation.Pt's older daughter is depressed as her long-term boyfriend was killed in an accident a few months ago.Pt reportedly comes home from work, gets into bed, and only comes out for dinner. Jacqueline Croft [address], [place], [address], [place] - [facility] 08/10/2024 15:50:56 08/13/2024 text/html Pt presents VIA PHONE for F/U LAB RESULTS. Call placed at: [phone].Call ended at: [phone].This encounter was undertaken via [telephone]. I introduced myself as THERESE Ramirez, and greeted the patient by name and then verified their location. We reviewed the appropriateness of virtual care for this visit and the limitations of telemedicine. All issues below were discussed and addressed but no physical exam was performed except as documented. If it was felt the patient should be evaluated [id number], they were directed to the clinic for care either now or at a subsequent visit as indicated below. Verbal consent for telemedicine visit obtained from the patient. Jacqueline Croft [address], [place], [address], [place] [facility] 08/13/2024 17:54:15 11/16/2024 text/html Pt presents for F/U DM, anxiety, and medications.Reports gaining weight even though she's trying to watch food choices.Still c/o insomnia, worse when taking metformin so she DC'd this weeks ago. States she did take it about 3 weeks straight before DC'd.She does have increased urination, thirst, hunger and more recently sweating.Reports trouble with concentration, task completion, energy, and anxiety. She will forget topic of conversation or what she's actively working on in the middle of doing it, especially if interrupted.States she and family moved about 45 minutes north to [place], [place] and she's happy with this so far.She requests RF paroxetine. Denies SI, HI, panic attacks. Jacqueline Croft [address], [place], [address], [place] [facility] 11/16/2024 15:09:43 OBGyn Episode No OBEpisode recorded.
--- OUTSIDE RECORDS SUMMARY | 2025-02-25 05:07 | XMS_ITS ---
Author Organization BILLING FACILITY [employer] [facility] Address [address] [place] [address] Care Team Providers Care Member Certification Manager Name Role Phone Jacqueline Croft Primary Care Provider ALLERGIES No Known Allergies RESULTS Component Value Reference Range Notes Rapid Strep Reviewed date:06/29/2024 12:16:35 PM Interpretation:Negative Performing Lab: Notes/Report: Negative Rapid Strep NEGATIVE Lot # [id number] Nurse Assistant Abdiaziz DORMAN Expiration 10/25/2024 Influenza Rapid Reviewed date:06/30/2024 08:35:31 AM Interpretation:Negative Performing Lab: Notes/Report: Negative RAPID INFLUENZA Flu A NEGATIVE Flu B NEGATIVE Lot # [id number] Expiration Date 04/25/2025 Nurse Assistant Abdiaziz MUIRN COVID QuickVue Professional Use SARS Antigen Reviewed date:06/30/2024 08:35:21 AM Interpretation:Negative Performing Lab: Notes/Report: Negative Quickvue NEGATIVE REASON FOR VISIT Sore throat, cough, headache MEDICATIONS Medication SIG (Take, Route, Frequency, Duration) Notes Start Date End Date Status PARoxetine HCl 40 MG 1 tablet in the mor anne Orally Once a day for 90 days Active Nicoderm CQ 14 MG/24HR 1 patch to skin Transdermal Once a day for 14 days Not-Taking metFORMIN HCl 500 MG 1 tablet with a kevin l Orally Once a day for 90 days 02/20/2024 Active VITAL SIGNS Temperature 97.6 degrees Fahrenheit 06/29/20 24 Heart Rate 88 /min 06/29/2024 Oximetry 97 % 06/29/2024 Blood pressure systolic 118 mm Hg 06/29/20 24 Blood pressure diastolic 72 mm Hg 024 Respiratory Rate 14 /min 06/29/2024 Height 63.5 in 06/29/2024 Encounters Encounter Location Date Provider Diagnosis [facility] [address] [place] [address] 06/29/2024 Jacqueline Croft Upper respiratory tract infection, unspecified type J06.9 ; Sore throat J02.9 and Mixed anxiety and depressive disorder F41.8 ASSESSMENTS Encounter Date Diagnosis Assessment Notes Treatment Notes Treatment Clinical Notes Section Notes 06/29/2024 Upper respiratory tract infection, unspecified type (ICD-10 - J06.9) Rapid testing results: negative strep, COVID, and flu tests. Pt made aware of results and likely acute viral URI condition. Discusssed OTC medications/grabiel lgesics as appropriate for ssx mgnt. Notify us if condition worsens, consider retest as <24 hours at this severity. Declines work note. 06/29/2024 Sore throat (ICD-10 - J02.9) Rapid testing results: negative strep, COVID, and flu tests. 06/29/2024 Mixed anxiety and depressive disorder (ICD-10 - F41.8) Prior PHQ 6, SHARMILA 7 which were improved. Denies SI, HI, panic attacks. Reportedly doing really well w/current medications and family issues. She requests RF paroxetine, dispensed. Encouraged CBT via [facility] virtual counselor or whomever she prefers. Sleeping well. Aware not to stop med abruptly, call for concern. F/U 3 monhts and PRN. PLAN OF TREATMENT Medication Medication Name Sig Start Date Stop Date Notes PARoxetine HCl 40 MG 1 tablet in the mor anne Orally Once a day for 90 days Next Appt Details Follow Up: 2 - 3 Days, Reaso n: F/U URI ssx if worsening Progress Notes * Grover COLVINOB:1990 (34 yo F)Acc No.[id number]:06/29/2024 Patient: Theresa COLVIN Provider: Jacqueline Croft APRN :1990 Age:34 Y Sex:Female Date:06/29/2024 Address:[address], [place] [facility] Subjective: * Chief Complaints: * Sore throat, cough, headache * HPI: *: Pt presents for c/o feeling sick x 1 days, started with fatigue last week. s sx: sore throat (5.5/10), very occasional productive cough, headache, LT ear/head pain. No fever, N/V/D. S ick children at home - strep in one daughter 2 weeks ago. t x: DayQuil and NyQuil last day, Tylenol last week. * ROS: General/Constitutional: General REPORTS: FATIGUE, HEADACHE. Denies: fever, chills, appettite change, lightheadedness. Eyes Denies:, blurred vision. ENT REPORTS: SORE THROAT, LEFT EAR PAIN. DENIES: hearing decreased, dizziness, nose congestion/drainage, post-nasal drip, sense of smell decreased, swallowing difficulty, voice changes. Cardiovascular DENIES: , chest pain or tightness, irregular heartbeat, palpitations. Respiratory REPORTS: COUGH. DENIES: shortness of breath, wheezing. Gastrointestinal DENIES: , abdominal pain , diarrhea , nausea , vomiting. Skin DENIES: , rash. Musculoskeletal Denies: myalgias. Neurologic DENIES: , dizziness, weakness. * Medical History: * Surgical History: * Hospitalization/Major Diagno stic Procedure: * Medications: TakingmetFORMIN HCl 500 MG Tablet 1 tablet with a meal Orally Once a day PARoxetine HCl 20 MG Tablet 2 tablet in the morning Orally Once a day Taking metFORMIN HCl 500 MG Tablet 1 tablet with a meal Orally Once a day Taking PARoxetine HCl 20 MG Tablet 2 tablet in the morning Orally Once a day Not-TakingNicoderm CQ 14 MG/24HR Patch 24 Hour 1 patch to skin Transdermal Once a day Not-Taking Nicoderm CQ 14 MG/24HR Patch 24 Hour 1 patch to skin Transdermal Once a day DiscontinuedFluconazole 150 MG Tablet 1 tablet Orally now Gentamicin Sulfate 0.3 % Solution 1 drop into affected eye Ophthalmic every 4 hrs Medication List reviewed and reconciled with the patientDiscontinued Fluconazole 150 MG Tablet 1 tablet Orally now Discontinued Gentamicin Sulfate 0.3 % Solution 1 drop into affected eye Ophthalmic every 4 hrs Medication List reviewed and reconciled with the patient * Allergies: N.K.A.no[Allergies Verified] Objective: * Vitals: Temp:97.6F, HR:88, Oxygen sat:97%, BP:118/72mm Hg, RR:14/min, Ht:63.5in. * Examination: General Examination *: GENERAL APPEARANCE: TIRED, QUIET, alert and oriented, no acute distress, pleasant, well nourished. HEAD: atraumatic, normocephalic. EYES: pupils equal/round/reactive to light , conjunctiva clear , sclera non-icteric. EARS: auditory canal clear, light reflex present, tympanic membrane intact/RETRACTED BILATERALLY. SINUSES: non-tender. NOSE: nares patent, no lesions . ORAL CAVITY: no lesions, mucosa moist, normal dentition. THROAT: no erythema, no exudate, pharynx normal, tonsils normal, uvula midline . NECK/THYROID: neck supple. LYMPH NODES: LEFT ANTERIOR CERVICAL LAD WITH MILD TTP. HEART: S1/S2 normal, regular rate and rhythm, no murmurs, no rubs, no gallops. LUNGS: clear to auscultation, good air movement, no respiratory distress, no cough observed. SKIN: intact, warm, well perfused, no rash. NEUROLOGIC: alert, cooperative, moving all extremities spontaneously. PSYCH: affect normal , cognitive function intact , mood normal. Assessment: * Assessment: 1. Upper respiratory tract infection, unspecified type - J06.9 (Primary) 2. Sore throat - J02.9 3. Mixed anxiety and depressive disorder - F41.8 Plan: * Treatment: 2. Sore throat LAB: Rapid Strep (Collection Date & Time - 06/29/2024 01:00 PM) Negative Value Reference Range Rapid Strep NEGATIVE * Lot # [id number] * Nurse Assistant Abidaziz DORMAN * Expiration 10/25/2024 ?LAB: Influenza Rapid (Collection Date & Time - 06/29/2024 01:00 PM)?? Negative* Value Reference Range Flu A NEGATIVE * Flu B NEGATIVE * Lot # [id number] * Expiration Date 04/25/2025 * Nurse Assistant Abdiaziz DORMAN * This lab was reviewed by Pelaez on 06/30/2024 at 08:35 AM MST ?LAB: [employer] QuickVue Professional Use SARS Antigen (Collection Date & Time - 06/29/2024 01:00 PM)??Negative* Value Reference Range Quickvue NEGATIVE * This lab was reviewed by Pelaez on 06/30/2024 at 08:35 AM [facility] Clinical Notes: Rapid testing results: negative strep, COVID, and flu tests. ?3.??Mixed anxiety and depressive disorder?? Refill PARoxetine HCl Tablet, 40 MG, 1 tablet in the morning, Orally, Once a day, 90 days, 90 Tablet, Refills 0.? Clinical Notes: Prior PHQ 6, SHARMILA 7 which were improved. Denies SI, HI, panic attacks. Reportedly doing really well w/current medications and family issues. She requests RF paroxetine, dispensed. Encouraged CBT via [facility] virtual counselor or whomever she prefers. Sleeping well. Aware not to stop med abruptly, call for concern. F/U 3 monhts and PRN.? * Procedure Codes: 63948 STREP A ASSAY [id number] INFLUENZA ASSAY [id number] SARS-COV-2 COVID- 19 AMP PRB, Modifiers: QW * Follow Up: 2 - 3 Days (Reason: F/U URI ssx if worsening) * Billing Information: * Visit Code: 11584 Level 3 Est Patient Acute Care. * Procedure Codes: 25757 STREP A ASSAY W/OPTIC. 85716 INFLUENZA ASSAY W/OPTIC. 76866 SARS-COV-2 COVID-19 AMP PRB. Modifiers: QW * [facility] Sign off status: Completed true * Provider: Jacqueline Croft APRN Date: 06/29/2024 History and Physical Notes * Examination Category Sub-Category Detail Notes Category Not es General Examination * GENERAL APPEARANCE: TIRED, QUIET, alert and oriented, no acute distress, pleasant, well nourished HEAD: atraumatic, normocep halic EYES: pupils equal/round/r eactive to light , conjunctiva clear , sclera non-icteric EARS: auditory canal clear , light reflex present, tympanic membrane intact/RETRACTED BILATERALLY NOSE: nares patent, no les ions ORAL CAVITY: no lesions, mucosa m oist, normal dentition THROAT: no erythema, no exud ate, pharynx normal, tonsils normal, uvula midline NECK/THYROID: neck supple LYMPH NODES: LEFT ANTERIOR CERVIC AL LAD WITH MILD TTP SKIN: intact, warm, well p erfused, no rash HEART: S1/S2 normal, regula r rate and rhythm, no murmurs, no rubs, no gallops LUNGS: clear to auscultatio n, good air movement, no respiratory distress, no cough observed NEUROLOGIC: alert, cooperative, moving all extremities spontaneously PSYCH: affect normal , cogn itive function intact , mood normal SINUSES: non-tender
--- OUTSIDE RECORDS SUMMARY | 2025-02-25 05:07 | XMS_ITS | Patient Health Record ---
Author Organization BILLING FACILITY [employer] [facility] Address [address] [place] [address] Care Team Providers Care Director Of Plant Operations Name Role Phone Jacqueline Croft Primary Care Provider ALLERGIES No Known Allergies RESULTS Component Value Reference Range Notes Test, Urine Reviewed date:04/21/2024 02:56:56 PM Interpretation:Negative Performing Lab: Notes/Report: Negative Test, Urine negative Yacht Rigger Olga DORMAN Urine Dip, Lucio Rivas Reviewed date:04/21/2024 03:08:18 PM Interpretation:Negative Performing Lab: Notes/Report: Negative Leukocyte NEG Nitrite, Urine NEG Urobilinogen NEG Protein NEG pH Blood NEG Specific [place] 1.10 Ketones Bilirubin Glucose Comment (clear, cloudy, yellow) Yacht Rigger Rapid Strep Reviewed date:06/29/2024 12:16:35 PM Interpretation:Negative Performing Lab: Notes/Report: Negative Rapid Strep NEGATIVE Lot # [id number] Yacht Rigger Abdiaziz DORMAN Expiration 10/25/2024 Influenza Rapid Reviewed date:06/30/2024 08:35:31 AM Interpretation:Negative Performing Lab: Notes/Report: Negative RAPID INFLUENZA Flu A NEGATIVE Flu B NEGATIVE Lot # [id number] Expiration Date 04/25/2025 Yacht Rigger Abdiaziz DORMAN COVID QuickVue Professional Use SARS Antigen Reviewed date:06/30/2024 08:35:21 AM Interpretation:Negative Performing Lab: Notes/Report: Negative Quickvue NEGATIVE REASON FOR REFERRAL No Information MEDICATIONS Medication SIG (Take, Route, Frequency, Duration) [...] a day for 90 days 02/20/2024 Active SOCIAL HISTORY Tobacco Use: Social History Observation Description Date Details (start date - stop date) Current Smoker 11/24/2016 - NA Sex Assigned At : Social History Observation Description Sex Assigned At Unknown Tobacco Use/Smoking Question Answer Notes Are you a current user When did you start using? 11/24/2016 How often do you smoke cigarettes? every day How many cigarettes a day do you smoke? 11-20 How soon after you wake up do you smoke your fir st cigarette? 6-30 minutes Are you interested in quitting? Ready to quit PROBLEMS Problem Type ICD Code Onset Dates Problem Status W/U Status Risk SNOMED Code Notes Problem Obesity (BMI 30-39.9) (E66.9) Active confirmed 562041032 Problem Cigarette smoker (F17.210) Active confirmed Cigarette smoker (72132845) Problem Smoking (F17.200) Active confirmed Smok ing (50690713) Problem FHx: diabetes mellitus (Z83.3) Active confirmed Family history: Diabetes mellitus (123702297) Problem Mixed anxiety and depressive disorder (F41.8) Active confirmed Mixed anxie ty and depressive disorder (901017614) Problem Prediabetes (R73.03) Active confirmed 553046038 Problem Other hyperlipidemia (E78.49) Active confirmed 54377013 VITAL SIGNS Heart Rate 88 /min 06/29/2024 Temperature 97.6 degrees Fahrenheit 06/29/2024 Respiratory Rate 14 /min 06/29/2024 Oximetry 97 % 06/29/2024 Blood pressure diastolic 72 mm Hg 06/29/2024 Weight-kg 82.1 kg 04/23/2024 Height 63.5 in 06/29/2024 Blood pressure systolic 118 mm Hg 06/29/2024 Weight 181 lbs 04/23/2024 BMI 31.56 04/23/2024 Encounters Encounter Location Date Provider Diagnosis [facility] [address] [place] [address] 03/30/2024 Jacqueline Croft [facility] [address] [place] [address] 05/19/2024 Jacqueline Marietoyin [facility] [address] [place] [address] 2024 Jacqueline Croft [facility] [address] [place] [address] 04/21/2024 Jacquelineever Croft Encounter for genera l adult medical examination with abnormal findings Z00.01 ; Acute vaginitis N76.0 ; Mixed anxiety and depressive disorder F41.8 ; Cigarette smoker F17.210 ; Obesity (BMI 30-39.9) E66.9 ; Other hyperlipidemia E78.49 and Prediabetes R73.03 [facility] [address] [place] [address] 04/20/2024 Jacqueline Voydtoyin Mixed anxiety and depressive disorder F41.8 [facility] [address] [place] [address] 04/23/2024 Jacqueline Averyalfred Acute conjunctivitis , unspecified acute conjunctivitis type, unspecified laterality H10.30 [facility] [address] [place] [address] 06/29/2024 Jacqueline Cynthiatoyin Upper respiratory tr act infection, unspecified type J06.9 ; Sore throat J02.9 and Mixed anxiety and depressive disorder F41.8 ASSESSMENTS Encounter Date Diagnosis Assessment Notes Treatment Notes Treatment Clinical Notes Section Notes 04/21/2024 Encounter for general adult medical examination with abnormal findings (ICD-10 - Z00.01) Last mammo: never. Anticipate at 40 per guidelines. Last pap: 2014, WNL, never had ABN. Recommend pt schedule as it's been 10 years. She will consider. Last labs: 01/2024. Repeat 04/2024 as a1c elevated. Vaccines: reportedly UTD. Will consider TDaP next CPE. 04/20/2024 Mixed anxiety and depressive disorder (ICD-10 - F41.8) 04/23/2024 Acute conjunctivitis, unspecified acute conjunctivitis type, unspecified laterality (ICD-10 - H10.30) Discussed recommendations of 3 days of cool compresses to allow for self-resolution before starting antibiotic reduces unnecessary antibiotic use. Education provided: No contact lenses until eyes are fully healed (~ 1 week). Discard current contact lenses. Adenovirus may persist on surfaces up to 28 days; practice soap hand-washing and hypochlorite surface wipe use. Discard old eye makeup, especially mascara. Cool, moist compresses can ease irritation and itch. Given long holiday weekend and knowledge of pt's exposure to children (home and work), will rx abx at this time. Rx ordered, dispensed. Pt will RTC if ssx fail to resolve 04/28/24. 06/29/2024 Sore throat (ICD-10 - J02.9) Rapid testing results: negative strep, COVID, and flu tests. 06/29/2024 Upper respiratory tract infection, unspecified type (ICD-10 - J06.9) Rapid testing results: negative strep, COVID, and flu tests. Pt made aware of results and likely acute viral URI condition. Discusssed OTC medications/analge sics as appropriate for ssx mgnt. Notify us if condition worsens, consider retest as <24 hours at this severity. Declines work note. 04/21/2024 Acute vaginitis (ICD-10 - N76.0) UA and hCG negative. Suspect candidia, will tx w/antifungal as rx'd. Reviewed vaginal hygiene practices. Pt to call if ssx fail to resolve in 3 days. 04/21/2024 Mixed anxiety and depressive disorder (ICD-10 - F41.8) PHQ 6, SHARMILA 7 now, previously PHQ 14, SHARMILA 21. Denies SI, HI, panic attacks. Reportedly doing much better since self from older brother and issues he creates. Missed 1-2 wks of paroxetine, but doing well since restarting yesterday. Encouraged CBT via [facility] virtual counselor or whomever she prefers. Sleeping well. Aware not to stop med abruptly, call for concern. F/U 6-8 wks or sooner PRN. 06/29/2024 Mixed anxiety and depressive disorder (ICD-10 - F41.8) Prior PHQ 6, SHARMILA 7 which were improved. Denies SI, HI, panic attacks. Reportedly doing really well w/current medications and family issues. She requests RF paroxetine, dispensed. Encouraged CBT via [facility] virtual counselor or whomever she prefers. Sleeping well. Aware not to stop med abruptly, call for concern. F/U 3 monhts and PRN. 04/21/2024 Cigarette smoker (ICD-10 - F17.210) Pt has not started patches or attempt to quit at this time. Encouraged pt to set quit date and work to replace habits with healthy alternatives. Discussed resources [employer] and [facility] virtual counseling. She will let us know if she needs any further help. 04/21/2024 Obesity (BMI 30-39.9) (ICD-10 - E66.9) Encouraged weight loss efforts with improved nutrition, smaller portion sizing, daily exercise, etc. 04/21/2024 Other hyperlipidemia (ICD-10 - E78.49) 01/2024 labs NONfasting indicate elevated lipids. Encouraged lifestyle modifications aimed toward overal improved health including lowering lipids and glucose levels. Advised smoking cessation as well. Pt opts to retest 3 months and consider tx at that time. 04/21/2024 Prediabetes (ICD-10 - R73.03) 01/2024 labs indicate new dx preDM with a1c 6.2. Pt is symptomatic, see HPI/ROS. Discussed lab results, educated on lifestyle modifications (ADA/low carb diet, smoking cessation, daily exercise, stress reduction, hydrate w/water, adequate sleep, weight loss) and suggested she aggressively work on these with goal to avoid or minimize pharmacotherapy need. Pt opts to retest 3 months and consider tx at that time. PLAN OF TREATMENT No Information Insurance Providers Payer Name Payer Address Payer Phone Subscriber Number Group Number Insured Name Patient Relationship to Insured Coverage Start Date Coverage End Date [facility] [address] [address] [place] [address] [id number] [phone] Dev Renee Spouse - patient is the spouse of the insured MEDICAL (GENERAL) HISTORY Medical History History ICD Code Mixed anxiety and depressive disorder F4 1.8 Smoking F17.200 Prediabetes R73.09 Surgical History Surgery Date(Month/Year) cholecystectomy 2019 appendectomy 2019 tubal ligation 2013
--- OUTSIDE RECORDS SUMMARY | 2025-02-25 05:08 | XMS_ITS | Clinical Summary ---
Author Organization [facility] Address [address] [place] [address] Care Team Providers Care Lubricator Granulator Name Role Phone Gilberto Toro MD Primary Care Provider [phone] Allergies No known active allergies Medications famotidine 20 MG tablet Take 1 tablet (20 mg total) by mouth 2 (two) times daily. 30 tablet 8 Active ondansetron 4 MG disintegrating tablet Take 1 tablet (4 mg total) by mouth every 8 (eight) hours as needed for Nausea. 10 tablet 8 Active Social History Tobacco Use Types Packs/Day Years Used Date Smoking Tobacco: Every Day Cigarettes Smokeless Tobacco: Never Alcohol Use Standard Drinks/Week Comments Never 0 (1 standard drink = 0.6 oz pur e alcohol) AUDIT-C Answer Date Recorded Frequency of Alcohol Consumption Never 12/04/2019 Average Number of Drinks Not on file 020 Frequency of Binge Drinking Not on file 11/24 Comments No Sex and Gender Information Value Date Recorded Sex Assigned at Not on file Legal Sex Female 4:18 PM CDT Gender Identity Not on file Sexual Orientation Not on file Last Filed Vital Signs Vital Sign Reading Time Taken Comments Blood Pressure 129/78 12/04/2019 9:03 PM CDT Pulse 97 12/04/2019 9:03 PM CDT Temperature 36.4 C (97.5 F) 12/04/2019 8:00 PM CDT Respiratory Rate 18 12/04/2019 9:03 PM CDT Oxygen Saturation 100% 12/04/2019 9:03 PM CDT Inhaled Oxygen Concentration - - Weight 81.6 kg (180 lb) 12/04/2019 8:00 PM CDT Height 160 cm (5' 3) 12/04/2019 8:00 PM CDT Body Mass Index 31.89 12/04/2019 8:00 PM CDT Plan of Treatment Health Maintenance Due Date Last Done Comments Cervical Cancer Screening Pa p Smear (Age 30 to 64) Every 3 Years 1988 Annual Physical 1991 Hepatitis C 2006 DTaP, Tdap and Td Vaccines ( 1 - Tdap) 2007 Hepatitis B Vaccines (1 of 3 - 19+ 3-dose series) 2007 Pneumococcal Vaccine: Pediat rics (0 to 5 Years) and At-Risk Patients (6 to 49 Years) (1 of 2 - PCV) 2007 Cervical Cancer Screening Pa p with HPV Testing (Age 30 to 64) Every 5 Years 2018 Cervical Cancer Screening with HPV 2018 COVID-19 Vaccine (2023-2 5 season) 2024 HPV Vaccines Aged Out No longer eligi ble based on patient's age to complete this topic Meningococcal B Vaccine Aged Out No l onger eligible based on patient's age to complete this topic Meningococcal Vaccine Aged Out No raimundo osvaldo eligible based on patient's age to complete this topic RSV Immunizations Under 20 Months Aged Out No longer eligible based on patient's age to complete this topic Care Teams Lubricator Granulator Relationship Specialty Start Date End Date Gilberto Toro MD [address] [facility] [address] [place] [address] PCP - General INTERNAL MEDICINE 12/04/19
--- OUTSIDE RECORDS SUMMARY | 2025-02-25 05:08 | XMS_ITS ---
Author Organization BILLING FACILITY [employer] [facility] Address [address] [place] [address] Care Team Providers Care Gluing Machine Operator Electronic Name Role Phone Jacqueline Croft Primary Care Provider [phone] REASON FOR VISIT F/U anxiety, depr, preDM, medicine, labs Encounters Encounter Location Date Provider Diagnosis [address] [address] 2024 Jacqueline Croft PLAN OF TREATMENT No Information Progress Notes * Grover TORRESOB:1990 (34 yo F)Acc No.[id number]:2024 Patient: Theresa TORRES Provider: Jacqueline Croft APRN :1990 Age:34 Y Sex:Female Date:2024 [address] [id number] Subjective: * Chief Complaints: * 1. F/U anxiety, depr, preDM, medicine, labs. * Medical History: Objective: Assessment: Plan: * Treatment: * Billing Information: * Visit Code: * Procedure Codes: * The named appointment provid er may or may not be the originator of this progress note, and it is not deemed complete until electronically signed by the appointment provider. Sign off status: Pending * Provider: Jacqueline Croft APRN Date: 2024
--- OUTSIDE RECORDS SUMMARY | 2025-02-25 05:08 | XMS_ITS ---
Author Organization BILLING FACILITY [facility] Address [address] [place] [address] Care Team Providers Care Supervisor Rolling Room Name Role Phone Jacqueline Croft Primary Care Provider REASON FOR VISIT F/U preDM, HLD, labs Encounters Encounter Location Date Provider Diagnosis [address] [address] 05/19/2024 Jacqueline Croft PLAN OF TREATMENT No Information Progress Notes * Grover TORRESOB:1990 (34 yo F)Acc No.[id number]:05/19/2024 Patient: Theresa TORRES Provider: Jacqueline Croft APRN :1990 Age:33 Y Sex:Female Date:05/19/2024 Address[place] [place] [address] Subjective: * Chief Complaints: * 1. F/U preDM, HLD, labs. * Medical History: Objective: Assessment: Plan: * Treatment: * Billing Information: * Visit Code: * Procedure Codes: * The named appointment provid er may or may not be the originator of this progress note, and it is not deemed complete until electronically signed by the appointment provider. Sign off status: Pending * Provider: Jacqueline Croft APRN Date: 05/19/2024
--- OUTSIDE RECORDS SUMMARY | 2025-02-25 05:09 | XMS_ITS | Data Portability ---
Author Organization [facility] , [employer] Address [address] [place] [address] Assessment Encounter Date Assessment Date Assessment LastModified by Organization Details LastModified Time 12/22/2018 12/22/2018 Patient presente d to office today for their Medicare Annual Wellness Visit. Education was provided on healthy nutrition, including a diet rich in fruits and vegetables, minimizing simple carbohydrates, salt, and saturated fats. Encouraged regular cardiovascular exercise such as walking at least 30 minutes daily, 5 times per week. Emphasized preventive health measures and educated pt on fall prevention and community-based lifestyle interventions to help reduce health risks and promote healthy living. Not available 12/22/2018 19:47:13 05/24/2020 05/24/2020 Patient presente d for follow up. Studies ordered as below. Discussed plan with patient/caregiver , who expressed understanding. Follow up as noted below. [email or web address] Not available 05/24/2020 16:17:02 09/04/2021 09/04/2021 Patient presente d to office today for their Medicare Annual Wellness Visit. Education was provided on healthy nutrition, including a diet rich in fruits and vegetables, minimizing simple carbohydrates, salt, and saturated fats. Encouraged regular cardiovascular exercise such as walking at least 30 minutes daily, 5 times per week. Emphasized preventive health measures and educated pt on fall prevention and community-based lifestyle interventions to help reduce health risks and promote healthy living. Not available 09/04/2021 18:45:46 09/19/2021 09/19/2021 Recommended on healthy nutrition, including a diet rich in fruits and vegetables, minimizing simple carbohydrates, salt, and saturated fats. Encouraged regular cardiovascular exercise such as walking at least 30 minutes daily, 5 times per week. Not available 09/19/2021 17:19:31 Plan of Treatment Reminders Order Date Submit Date Provider Last Modified By Organization Details Last Modified Time Details Appointments None recorded. Lab HbA1c (hemoglobi n A1c), blood 2021 [employer] [facility], [address], [facility] [address], [place], [address], 12:57:01 TSH + free T4, serum 2021 [facility], [address], [address], [place], [address], 12:57:00 T3, free, serum or plasma 2021 [facility], [address], [address], [place], [address], 12:57:00 CMP, serum or plasma 2021 [employer] [facility], [address], [place], [address], 12:57:01 vitamin B12, serum 2021 [facility], [address], [address], [place], [address], 00:38:28 vitamin B1 (thiamine) , blood 2021 [employer] [facility], [address], [address], [place], [address], 12:57:01 vitamin B6 (pyridoxin e), plasma 2021 [employer] [facility], [address], [address], [place], [address], 12:57:01 CBC w/ auto diff 2021 [employer], [address], [place], [address], 2 12:57:00 D-dimer, quant, plasma 2021 022 [facility], [address], [address], [place], [address], 2 00:38:27 hepatitis C Ab, signal-to- cutoff, serum or plasma 2021 022 mbfer [facility], [address], [address], [place], [address], 2 12:57:01 CBC w/ auto diff 2019 020 [email or web address] [facility], [address], [address], [place], [address], 0 16:13:37 hepatitis C Ab, signal-to- cutoff, serum or plasma 2019 020 [email or web address] [facility], [address], [address], [place], [address], 0 16:13:37 TSH + free T4, serum 2019 020 [email or web address] [facility], [address], [address], [place], [address], 0 16:13:37 T3, free, serum or plasma 2019 020 [email or web address] [facility], [address], [address], [place], [address], 0 16:13:37 CMP, serum or plasma 2019 020 [email or web address] [facility], [address], [address], [place], [address], 0 16:13:38 CBC w/ auto diff 2019 020 lcallison [facility], [address], [facility] [address], [place], [address], 0 12:42:58 glucose tolerance test, 4 specimens 2019 020 lcallison [facility], [address] [place] [address], [facility], [place], [address], 0 12:42:59 HbA1c (hemoglobi n A1c), blood 2019 020 lcallison [facility], [address] [place] [address], [facility], [place], [address], 0 12:42:59 hepatitis C Ab, signal-to- cutoff, serum or plasma 2019 020 lcallison [facility], [address], [facility] [address], [place], [address], 0 12:42:59 TSH + free T4, serum 2019 020 lcallison [facility], [address], [facility] [address], [place], [address], 0 12:42:58 T3, free, serum or plasma 2019 020 lcallison [facility], [address], [facility] [address], [place], [address], 0 12:42:58 CMP, serum or plasma 2019 020 lcallison [facility], [address] [place] [address], [facility] [address], [place], [address], 0 12:42:59 microalbum in/creatin ine, mass ratio, urine 2018 019 lcallison [facility], [address], [address], [place], [address], 9 08:57:21 CBC w/ auto diff 2018 019 tl [facility], [address], [address], [place], [address], 9 08:57:21 HbA1c (hemoglobi n A1c), blood 2018 [facility]19 [facility], [address], [address], [place], [address], 9 08:57:21 vitamin B1 (thiamine) , blood 2018 019 [facility], [address], [address], [place], [address], 9 08:57:21 vitamin B6 (pyridoxin e), plasma 2018 019 [facility], [address], [address], [place], [address], 9 08:57:21 Referral gastroente rologist referral 2021 022 [email or web address] Not available 08:14:[address] referral 2018 019 tl Not available 9 09:06:31 dermatolog ist referral 2018 019 ariadneagata [facility], [address] [facility] [address] [facility] , [place], [address], 9 09:06:32 Procedures None recorded. Surgeries None recorded. Imaging XR, chest, 2 view 2021 ZH[facility], [address], [address], [place], [address], 17:46:39 electrocar diogram 2021 022 [facility], [address], [place], [address], 10:46:15 MRI, brain, w/wo contrast 2018 019 tl [facility], [address], [address], [place], [address], 9 09:10:08 Medication Orders Celexa 20 mg tablet 2021 022 DESDEMONA [id number], [address], [place], [id number], 17:34:02 phentermin e 37.5 mg tablet 2018 019 [email or web address] [id number], [address] [place], [address], 17:57:59 Patient TargetsNo targets recorded. Patient Instructions Encounter Date Encounter Id Patient Instructions Last Modified By Organization Details Last Modified Time 12/22/2018 [id number] leg and ankle edema: care instructions Not available 12/22/2018 19:45:54 learning about high white blood cell counts Not available 12/22/2018 19:45:54 learning about high blood sugar Not available 12/22/2018 19:45:54 smoking cessatio n counseling, greater than 3 minutes up to 10 minutes* [email or web address] Not available 12/29/2018 09:14:29 advised to lose weight Not available 12/22/2018 19:45:54 Discussed and explained advance directives such as standard forms to the . Face to face discussion lasted for a duration of ___ minutes. [email or web address] Not available 12/22/2018 19:05:48 05/24/2020 [id number] I spent 25 minut e face to face time with this patient (> 50% spent on counseling), explaining the test result and counseling patient on pt's medical conditions. Not available 05/24/2020 17:30:06 Reason for Referral Senior Windows Engineer Referral for Sc reening for malignant neoplasm of cervix Referring Physician: Gilberto Toro, Internal Medicine, Encounter Date: 12/22/2018 Shoe Repair Supervisor Referral for S kin lesion Referring Physician: Gilberto Toro, Internal Medicine, Encounter Date: 12/22/2018 School Psychologist Assistant Referral for Dysphagia Referring Physician: Gilberto Toro, Internal Medicine, Encounter Date: 09/19/2021 Results Created Date Observation Date Name Description Value Unit Range Abnormal Flag Note LastModifiedBy Organization Detail LastModifiedTime 03/03/20 20 03/04/2020 CMP, serum or plasm a glucose 80 mg/dL 65-99 normal Fasti ng refer ence inter yuri Not Available [address], [address], 03/04/2020 10:18:06 03/03/2003/04/2020 CMP, serum or plasm a urea nitrogen (BUN) 12 mg/dL 7-25 normal Not Available [address], [address], 03/04/2020 10:18:06 03/03/2003/04/2020 CMP, serum or plasm a creatinine 0.73 mg/dL 0.50-1 .10 normal Not Available [address], [address], 03/04/2020 10:18:06 03/03/2003/04/2020 CMP, serum or plasm a eGFR non-afr. maldivian 110 mL/mi n/1.7 3m2 > or = 60 normal Not Available [facility] [address], [address], 03/04/2020 10:18:06 03/03/2003/04/2020 CMP, serum or plasm a eGFR 127 mL/mi n/1.7 3m2 > or = 60 normal Not Available [facility] [address], [address], 03/04/2020 10:18:06 03/03/2003/04/2020 CMP, serum or plasm a BUN/creatini ne ratio NOT APPLIC ABLE (calc ) 6-22 Not Available [address], [address], 03/04/2020 10:18:06 03/03/2003/04/2020 CMP, serum or plasm a sodium 138 mmol/ L 135-14 6 normal Not Available [address], [address], 03/04/2020 10:18:06 03/03/2003/04/2020 CMP, serum or plasm a potassium 4.5 mmol/ L 3.5-5. 3 normal Not Available [address], [address], 03/04/2020 10:18:06 03/03/2003/04/2020 CMP, serum or plasm a chloride 103 mmol/ L 98-110 normal Not Available [address], [address], 03/04/2020 10:18:06 03/03/2003/04/2020 CMP, serum or plasm a carbon dioxide 26 mmol/ L 20-32 normal Not Available [address], [address], 03/04/2020 10:18:06 03/03/2003/04/2020 CMP, serum or plasm a calcium 10.0 mg/dL 8.6-10 .2 normal Not Available [address], [address], 03/04/2020 10:18:06 03/03/2003/04/2020 CMP, serum or plasm a protein, total 7.8 g/dL 6.1-8. 1 normal Not Available [address], [address], 03/04/2020 10:18:06 03/03/2003/04/2020 CMP, serum or plasm a albumin 4.7 g/dL 3.6-5. 1 normal Not Available [address], [address], 03/04/2020 10:18:06 03/03/20 20 03/04/2020 CMP, serum or plasm a globulin 3.1 g/dL_ (calc ) 1.9-3. 7 normal Not Available [address], [address], 03/04/2020 10:18:06 03/03/2003/04/2020 CMP, serum or plasm a albumin/glob ulin ratio 1.5 (calc ) 1.0-2. 5 normal Not Available [address], [address], 03/04/2020 10:18:06 03/03/20 20 03/04/2020 CMP, serum or plasm a bilirubin, total 0.4 mg/dL 0.2-1. 2 normal Not Available [address], [address], 03/04/2020 10:18:06 03/03/2003/04/2020 CMP, serum or plasm a alkaline phosphatase 70 U/L 31-125 normal Not Available [address], [address], 03/04/2020 10:18:06 03/03/2003/04/2020 CMP, serum or plasm a AST 18 U/L 10-30 normal Not Available [address], [address], 03/04/2020 10:18:06 03/03/2003/04/2020 CMP, serum or plasm a ALT 20 U/L 6-29 normal Not Available [address], [address], 03/04/2020 10:18:06 03/03/20 20 03/04/2020 gluco se edy ance test, 4 speci mens time 1 FASTIN G Not Available [address], [address], 03/04/2020 10:18:06 03/03/20 20 03/04/2020 gluco se edy ance test, 4 speci mens specimen 1 76 mg/dL 65-99 normal Not Available [address], [address], 03/04/2020 10:18:06 03/03/20 20 03/04/2020 gluco se edy ance test, 4 speci mens time 2 1 HOUR Not Available [address], [address], 03/04/2020 10:18:06 03/03/20 20 03/04/2020 gluco se edy ance test, 4 speci mens specimen 2 181 mg/dL normal Not Available [address], [address], 03/04/2020 10:18:06 03/03/20 20 03/04/2020 gluco se edy ance test, 4 speci mens time 3 DRAW 3 Not Available [address], [address], 03/04/2020 10:18:06 03/03/20 20 03/04/2020 gluco se edy ance test, 4 speci mens specimen 3 157 mg/dL normal Not Available [facility] [address], [address], 03/04/2020 10:18:06 03/03/20 20 03/04/2020 gluco se edy ance test, 4 speci mens time 4 DRAW 4 Not Available [address], [address], 03/04/2020 10:18:06 03/03/20 20 03/04/2020 gluco se edy ance test, 4 speci mens specimen 4 67 mg/dL normal Not Available [facility] [address] [place], [address], 03/04/2020 10:18:06 03/03/20 20 03/04/2020 gluco se edy ance test, 4 speci mens comment Ameri can Diabe danielle [facility] i[facility] n Diagn ostic Crite antonio for Diabe danielle Melli tus Gluco se Value (mg/d L) Inter preta tion Fasti ng 1 Hr 2 Hr Eyd ance Edy ance ----- ----- ---- ----- ---- ----- ---- ----- ---- Brooklynn l <1 00 Not Estab lishe d <140 Impai red Fasti ng 100-1 25 Impai red Edy ance 140-1 99 Diabe danielle >OR=1 26* >OR=2 00* * Must be confi rmed by testi ng on a subse quent day. Not Available [facility] [address] [place], [address], 03/04/2020 10:18:06 03/03/20 20 03/04/2020 HbA1c (hemo globi n A1c), blood hemoglobin A1C 5.5 %_of_ total _HGB <5.7 normal For the purpo se of luis anne for the prese nce of diabe danielle: <5.7% Consi stent with the absen ce of diabe danielle 5.7-6 .4% Consi stent with incre ased risk for diabe danielle (pred iabet es) > or =6.5% Consi stent with diabe danielle This assay resul t is consi stent with a decre ased risk of diabe danielle. Curre ntly, no conse nsus exist nancy heller use of hemog lobin A1c for diagn osis of diabe danielle in child debbie. Accor arron to Ameri can Diabe danielle [employer] iatio n (ADA) guide lines , hemog lobin A1c <7.0% repre sents optim al contr ol in non-p regna nt diabe tic patie nts. Diffe rent metri cs may apply to speci fic patie nt popul ation s. Stand ards of Medic al Care in Diabe danielle(A DA). Not Available [facility] [address] , [place], [address], 03/04/2020 10:18:07 09/11/19 22 09/12/2021 TSH+F REE T4 TSH 1.400 uIU/m L 0.450- 4.500 Not Available [facility] ([facility]) [address] [place], [address], 10/01/2021 07:36:03 09/11/19 22 09/12/2021 TSH+F REE T4 T4,free(dire ct) 1.21 NG/dL 0.82-1 .77 Not Available [facility] ([facility]) [address] [place], [address], 10/01/2021 07:36:03 09/11/19 22 09/12/2021 CBC WITH DIFFE RENTI AL/PL ATELE T WBC 10.0 x10e3 /uL 3.4-10 .8 Not Available [facility] ([facility]) [address] [place], [address], 10/01/2021 07:36:05 09/11/19 22 09/12/2021 CBC WITH DIFFE RENTI AL/PL ATELE T RBC 4.38 x10e6 /uL 3.77-5 .28 Not Available [facility] ([facility]) [address] [place], [address], 10/01/2021 07:36:05 09/11/19 22 09/12/2021 CBC WITH DIFFE RENTI AL/PL ATELE T hemoglobin 13.4 g/dL 11.1-1 5.9 Not Available [facility] ([facility]) [address] [place], [address], 10/01/2021 07:36:05 09/11/19 22 09/12/2021 CBC WITH DIFFE RENTI AL/PL ATELE T hematocrit 39.4 % 34.0-4 6.6 Not Available [facility] ([facility]) [address] [facility], [place], [address], 10/01/2021 07:36:05 09/11/19 22 09/12/2021 CBC WITH DIFFE RENTI AL/PL ATELE T MCV 90 fL 79-97 Not Available [facility] ([facility]) [address] [place], [address], 10/01/2021 07:36:05 09/11/19 22 09/12/2021 CBC WITH DIFFE RENTI AL/PL ATELE T MCH 30.6 pg 26.6-3 3.0 Not Available [facility] ([facility]) [address] [facility], [place], [address], 10/01/2021 07:36:05 09/11/19 22 09/12/2021 CBC WITH DIFFE RENTI AL/PL ATELE T MCHC 34.0 g/dL 31.5-3 5.7 Not Available [facility] ([facility]) [address] [place], [address], 10/01/2021 07:36:05 09/11/19 22 09/12/2021 CBC WITH DIFFE RENTI AL/PL ATELE T RDW 12.4 % 11.7-1 5.4 Not Available [facility] ([facility]) [address] [place], [address], 10/01/2021 07:36:05 09/11/19 22 09/12/2021 CBC WITH DIFFE RENTI AL/PL ATELE T platelets 275 x10e3 /uL 150-45 0 Not Available [facility] ([facility]) [address] [place], [address], 10/01/2021 07:36:05 09/11/19 22 09/12/2021 CBC WITH DIFFE RENTI AL/PL ATELE T neutrophils 61 % not estab. Not Available [facility] ([facility]) [address] [facility], [place], [address], 10/01/2021 07:36:05 09/11/19 22 09/12/2021 CBC WITH DIFFE RENTI AL/PL ATELE T lymphs 28 % not estab. Not Available [facility] ([facility]) [address] [facility], [place], [address], 10/01/2021 07:36:05 09/11/19 22 09/12/2021 CBC WITH DIFFE RENTI AL/PL ATELE T monocytes 5 % not estab. Not Available [facility] ([facility]) [address] [facility], [place], [address], 10/01/2021 07:36:05 09/11/19 22 09/12/2021 CBC WITH DIFFE RENTI AL/PL ATELE T eos 6 % not estab. Not Available [facility] ([facility]) [address] [facility], [place], [address], 10/01/2021 07:36:05 09/11/19 22 09/12/2021 CBC WITH DIFFE RENTI AL/PL ATELE T basos 0 % not estab. Not Available [facility] ([facility]) [address] [facility], [place], [address], 10/01/2021 07:36:05 09/11/19 22 09/12/2021 CBC WITH DIFFE RENTI AL/PL ATELE T immature cells FOUNDER [employer] CEO Not Available [facility] ([facility]) [address] [facility], [place], [address], 10/01/2021 07:36:05 09/11/19 22 09/12/2021 CBC WITH DIFFE RENTI AL/PL ATELE T neutrophils (absolute) 6.1 x10e3 /uL 1.4-7. 0 Not Available [facility] ([facility]) [address] [facility], [place], [address], 10/01/2021 07:36:05 09/11/19 22 09/12/2021 CBC WITH DIFFE RENTI AL/PL ATELE T lymphs (absolute) 2.8 x10e3 /uL 0.7-3. 1 Not Available [facility] ([facility]) [address] [facility], [place], [address], 10/01/2021 07:36:05 09/11/19 22 09/12/2021 CBC WITH DIFFE RENTI AL/PL ATELE T monocytes(ab solute) 0.5 x10e3 /uL 0.1-0. 9 Not Available [facility] ([facility]) [address] [place], [address], 10/01/2021 07:36:05 09/11/19 22 09/12/2021 CBC WITH DIFFE RENTI AL/PL ATELE T eos (absolute) 0.6 x10e3 /uL 0.0-0. 4 above high normal Not Available [facility] ([facility]) [address] [place], [address], 10/01/2021 07:36:05 09/11/19 22 09/12/2021 CBC WITH DIFFE RENTI AL/PL ATELE T baso (absolute) 0.0 x10e3 /uL 0.0-0. 2 Not Available [facility] ([facility]) [address] [place], [address], 10/01/2021 07:36:05 09/11/19 22 09/12/2021 CBC WITH DIFFE RENTI AL/PL ATELE T immature granulocytes 0 % not estab. Not Available [facility] ([facility]) [address] [place], [address], 10/01/2021 07:36:05 01/17/20 22 09/12/2021 CBC WITH DIFFE RENTI AL/PL ATELE T immature grans (abs) 0.0 x10e3 /uL 0.0-0. 1 Not Available [facility] ([facility]) [address] [facility], [place], [address], 10/01/2021 07:36:05 09/11/19 22 09/12/2021 CBC WITH DIFFE RENTI AL/PL ATELE T NRBC [employer]OUNDER [employer] CEO Not Available [facility] ([facility]) [address] [facility], [place], [address], 10/01/2021 07:36:05 09/11/19 22 09/12/2021 CBC WITH DIFFE RENTI AL/PL ATELE T hematology comments: FOUNDER AND CEO Not Available [facility] ([facility]) [address] [facility], [place], [address], 10/01/2021 07:36:05 09/11/19 22 09/12/2021 COMP. METAB OLIC PANEL (14) glucose 87 mg/dL 65-99 Not Available [facility] ([facility]) [address] [facility], [place], [address], 10/01/2021 07:36:06 09/11/19 22 09/12/2021 COMP. METAB OLIC PANEL (14) BUN 9 mg/dL 6-20 Not Available [facility] ([facility]) [address] [facility], [place], [address], 10/01/2021 07:36:06 09/11/19 22 09/12/2021 COMP. METAB OLIC PANEL (14) creatinine 0.65 mg/dL 0.57-1 .00 Not Available [facility] ([facility]) [address] [facility], [place], [address], 10/01/2021 07:36:06 09/11/19 22 09/12/2021 COMP. METAB OLIC PANEL (14) eGFR if nonafricn AM 117 mL/mi n/1.7 3 >59 Not Available [facility] ([facility]) [address] [facility], [place], [address], 10/01/2021 07:36:06 09/11/19 22 09/12/2021 COMP. METAB OLIC PANEL (14) eGFR if africn AM 135 mL/mi n/1.7 3 >59 In accor dance with recom menda tions from the NKF-A SN Task force , [facility] is in the proce ss of updat ing its eGFR calcu latio n to the 2020 CKD-E PI creat inine equat ion that estim ates kidne y funct ion witho ut a race varia ble. Not Available [facility] ([facility]) [address] [facility], [place], [address], 10/01/2021 07:36:06 09/11/19 22 09/12/2021 COMP. METAB OLIC PANEL (14) BUN/creatini ne ratio 14 9-23 Not Available [facility] ([facility]) [address] [facility], [place], [address], 10/01/2021 07:36:06 09/11/19 22 09/12/2021 COMP. METAB OLIC PANEL (14) sodium 139 mmol/ L 134-14 4 Not Available [facility] ([facility]) [address] [place], [address], 10/01/2021 07:36:06 09/11/19 22 09/12/2021 COMP. METAB OLIC PANEL (14) potassium 4.1 mmol/ L 3.5-5. 2 Not Available [facility] ([facility]) [address] [place], [address], 10/01/2021 07:36:06 09/11/19 22 09/12/2021 COMP. METAB OLIC PANEL (14) chloride 102 mmol/ L 96-106 Not Available [facility] ([facility]) [address] [facility] [place], [address], 10/01/2021 07:36:06 09/11/19 22 09/12/2021 COMP. METAB OLIC PANEL (14) carbon dioxide, total 22 mmol/ L 20- Not Available [facility] ([facility]) [address] [place], [address], 10/01/2021 07:36:06 09/11/19 22 09/12/2021 COMP. METAB OLIC PANEL (14) calcium 9.4 mg/dL 8.7-10 .2 Not Available [facility] ([facility]) [address] [place], [address], 10/01/2021 07:36:06 09/11/19 22 09/12/2021 COMP. METAB OLIC PANEL (14) protein, total 7.3 g/dL 6.0-8. 5 Not Available [facility] ([facility]) [address] [place], [address], 10/01/2021 07:36:06 09/11/19 22 09/12/2021 COMP. METAB OLIC PANEL (14) albumin 4.6 g/dL 3.8-4. 8 Not Available [facility] ([facility]) [address] [place], [address], 10/01/2021 07:36:06 09/11/19 22 09/12/2021 COMP. METAB OLIC PANEL (14) globulin, total 2.7 g/dL 1.5-4. 5 Not Available [facility] ([facility]) [address] [place], [address], 10/01/2021 07:36:06 09/11/19 22 09/12/2021 COMP. METAB OLIC PANEL (14) A/G ratio 1.7 1.2-2. 2 Not Available [facility] ([facility]) [address] [place], [address], 10/01/2021 07:36:06 09/11/19 22 09/12/2021 COMP. METAB OLIC PANEL (14) bilirubin, total 0.2 mg/dL 0.0-1. 2 Not Available [facility] ([facility]) [address] [facility], [place], [address], 10/01/2021 07:36:06 09/11/19 22 09/12/2021 COMP. METAB OLIC PANEL (14) alkaline phosphatase 71 IU/L 44-121 Ple ase note refer ence inter yuri benjamin e Not Available [facility] ([facility]) [address] [place], [address], 10/01/2021 07:36:06 09/11/19 22 09/12/2021 COMP. METAB OLIC PANEL (14) AST (SGOT) 16 IU/L 0-40 Not Available [facility] ([facility]) [address] [place], [address], 10/01/2021 07:36:06 09/11/19 22 09/12/2021 COMP. METAB OLIC PANEL (14) ALT (SGPT) 16 IU/L 0-32 Not Available [facility] ([facility]) [address] [facility], [place], [address], 10/01/2021 07:36:06 09/11/19 22 09/12/2021 HCV ANTIB JEWEL RFX TO QUANT PCR HCV Ab <0.1 s/co_ ratio 0.0-0. 9 Not Available [facility] ([facility]) [address] [place], [address], 10/01/2021 07:36:06 09/11/19 22 09/12/2021 HCV ANTIB JEWEL RFX TO QUANT PCR interpretati on: Commen t Negat luacs Not infec belen with HCV, unles s recen t infec tion is suspe cted or other evide nce exist s to indic ate HCV infec tion. Not Available [facility] ([facility]) [address] [facility], [place], [address], 10/01/2021 07:36:06 09/11/19 22 09/12/2021 HEMOG LOBIN A1C hemoglobin A1C 5.6 % 4.8-5. 6 Predi abete s: 5.7 - 6.4 Diabe danielle: >6.4 Glyce javed contr ol for adult s with diabe danielle: <7.0 Not Available [facility] ([facility]) [address] [facility], [place], [address], 10/01/2021 07:36:07 09/11/19 22 09/30/2021 VITAM IN B6, PLASM A vitamin B6 6.9 ug/L 2.0-32 .8 Not Available [facility] ([facility]) [address] [place], [address], 10/01/2021 07:36:08 09/11/19 22 09/12/2021 D-DIM ER D-dimer 0.24 mg/L_ feu 0.00-0 .49 Accor ding to the assay manuf actur er's publi shed packa ge inser t, a brooklynn l (<0.5 0 mg/L FEU) D-dim er resul t in conju nctio n with a non-h igh clini christiano proba bilit y asses sment , exclu alek deep vein throm bosis (DVT) and pulmo nary embol ism (PE) with high sensi tivit y. D-dim er value s incre ase with age and this can make VTE exclu chastity of an older popul ation diffi cult. To addre ss this, the Ameri can Colle ge of Physi cians , based on best avail able evide nce and recen t guide lines , recom mends that clini cians use age-a djust ed D-dim er thres holds in patie nts great er than 50 years of age with: a) a low proba bilit y of PE who do not meet all Pulmo nary Embol ism Rule Out Crite antonio, or b) in those with inter media te proba bilit y of PE. The formu la for an age-a djust ed D-dim er cut-o ff is age/ 100. For examp le, a 60 year old patie nt would have an age-a djust ed cut-o ff of 0.60 mg/L FEU and an 80 year old 0.80 mg/L FEU. Not Available [facility] ([facility]) [address] [place], [address], 10/01/2021 07:36:08 09/11/19 22 09/18/2021 VITAM IN B1 (THIA MINE) , BLOOD vit. B1, whole blood 138.7 nmol/ L 66.5-2 00.0 Not Available [facility] ([facility]) [address] [place], [address], 10/01/2021 07:36:09 09/11/19 22 09/12/2021 VITAM IN B12 vitamin B12 431 pg/mL 232-12 45 Not Available [facility] ([facility]) [address] [place], [address], 10/01/2021 07:36:09 09/11/19 22 09/12/2021 TRIIO DOTHY JOVANNY E (T3), FREE triiodothyro nine (T3), free 2.9 pg/mL 2.0-4. 4 Not Available [facility] ([facility]) [address] [place], [address], 10/01/2021 07:36:10 01/27/20 19 01/19/2019 CT, abdom en + pelvi s, w/ contr ast No observ ation record ed. Not Available 2019 18:57:06 01/27/20 19 01/19/2019 CT, abdom en + pelvi s, w/ contr ast No observ ation record ed. Not Available 2019 18:57:06 11/15/19 21 11/02/2020 XR, chest , 2 view No observ ation record ed. [facility] Not Available 2020 23:52:28 09/04/19 22 09/07/2021 elect rocar diogr am No observ ation record ed. [facility], [facility] [address], [place], [address], 09/07/2021 11:49:33 09/05/19 22 elect rocar diogr am No observ ation record ed. [facility] [address], [place], [address], 09/07/2021 11:49:59 09/11/19 22 09/11/2021 XR, chest , 2 view No observ ation record ed. [facility] [address] [facility] [address], [place], [address], 09/26/2021 08:13:49 01/09/20 23 01/07/2023 XR, chest , 2 view No observ ation record ed. [place] [id number], [place], [address], 01/08/2023 20:36:49 Result Notes None recorded. Procedures Surgical History Date Name Laterality Status Provider Name and Address Organization Details Recorded Time 01/21/20 19 Cholecystectomy completed Gilberto Toro MD [address], [place], [address], [facility] 01/27/2019 15:02:36 08/26/19 14 Date of Last Pap Smear completed Nancy Martel [facility] 11/13/2018 09:53:58 Appendectomy completed Gilberto Toro MD [address], [place], [address], [facility] 11/13/2018 10:58:45 Imaging Results None recorded. Procedure Notes None recorded. Medical Equipment None Reported. Allergies No known drug allergies Medications Name Sig Start Date Stop Date Status Note LastModified by Organization Details LastModified Time nitrofurant oin monohydrate /macrocryst als 100 mg caps 11/13 completed Not Available Not Available Not Available ciprofloxac in hydrochlori de 500 mgtabs 09/04 completed Not Available Not Available Not Available metronidazo le 500 mg tabs 09/04 completed Not Available Not Available Not Available phenazopyri dine hcl 200 mg tabs 11/13 completed Not Available Not Available Not Available hydrocodone /acetaminop hen 5-325 mgtabs 09/04 completed Not Available Not Available Not Available cyclobenzap rine 10 mg tablet TAKE 1 TABLET BY MOUTH THREE TIMES DAILY NEEDED FOR MUSCLE SPASM 09/04 completed Not Available Not Available Not Available amoxicillin 500 mg capsule TK 1 C PO BID 09/04 completed Not Available Not Available Not Available phentermine 37.5 mg tablet half a tab once every AM x 4 days; then full tab every AM. 09/04 completed Not Available Not Available Not Available citalopram 20 mg tablet TAKE 1 TABLET BY MOUTH DAILY THEREAFTE R 2021 active Not Available Not Available Not Avai lable Vitals Date Recorded Body weight Body temperature Body mass index (BMI) Body height Respiratory rate Heart rate Systolic blood pressure Diastolic blood pressure Provider Name and Address Organization Details Last Updated DateTime 2 09231.6 6 g 97.3 [degF] 32 kg/m2 157.48 cm 16 /min 103 /min 111 mm[Hg] 80 mm[Hg] [facility] 2 18:00:32 Date Recorded Body height Body mass index (BMI) Body weight Body temperature Respiratory rate Heart rate Systolic blood pressure Diastolic blood pressure Provider Name and Address Organization Details Last Updated DateTime 2 157.48 cm 32 kg/m2 68249.6 6 g 97.7 [degF] 16 /min 99 /min 109 mm[Hg] 73 mm[Hg] [facility] 2 16:23:03 Date Recorded Body height Respiratory rate Body mass index (BMI) Body weight Body temperature Heart rate Systolic blood pressure Diastolic blood pressure Provider Name and Address Organization Details Last Updated DateTime 9 157.48 cm 16 /min 33.5 kg/m2 80185.4 g 97 [degF] 93 /min 108 mm[Hg] 73 mm[facility] 19:19[facility]54 Date Recorded Body weight Respiratory rate Body mass index (BMI) Body height Body temperature Heart rate Systolic blood pressure Diastolic blood pressure Provider Name and Address Organization Details Last Updated DateTime 0 21266.4 g 16 /min 33.5 kg/m2 157.48 cm 98 [degF] 95 /min 118 mm[Hg] 80 mm[facility]Hg[facility] 18:31:41 Date Recorded Body height Body mass index (BMI) Body weight Respiratory rate Body temperature Heart rate Systolic blood pressure Diastolic blood pressure Provider Name and Address Organization Details Last Updated DateTime 0 157.48 cm 17.9 kg/m2 55003.0 5 g 16 /min 98 [degF] 72 /min 110 mm[Hg] 76 mm[Hg] November [facility] 0 16:19:05 Social History Question Answer Notes LastModified by Organizat ion Details LastModified Time Tobacco Smoking Status Current Every Day Smoker Nancyadiel Martel [facility] 11/13/2018 10:31:21 Do You Have An Advance Directive? No Information not available 11/13/2018 What Is Your Level Of Caffeine Consumption? Moderate 1-2 Cup Information not available 11/13/2018 How Much Tobacco Do You Chew? None Information not available 11/13/2018 What Is Your Code Status? Full Code Information not available 11/13/2018 In The 14 Days Before Symptom Onset, Have You Had Close Contact With A Laboratory-confir med COVID-19 While That Case Was Ill? No 02/22/20- 's Coworker Tested Positive So Patient And Pt's Got Tested 2 Weeks Ago And Were Both Negative. Information not available 02/22/2020 In The 14 Days Before Symptom Onset, Have You Had Close Contact With A Person Who Is Under Investigation For COVID-19 While That Person Was Ill? No Information not available 02/22/2020 Have You Been To An Area Known To Be High Risk For COVID-19? No Information not available 02/22/2020 What Type Of Diet Are You Following? REGULAR Information not available 11/13/2018 Which Illicit Or Recreational Drugs Have You Used? None Information not available 11/13/2018 Marital Status Informatio n not available 11/13/2018 What Was The Date Of Your Most Recent Tobacco Screening? 09/19/2021 [email or web address] Information not available 09/19/2021 At What Age Did You Start Smoking Tobacco? 26 Information not available 11/13/2018 How Much Tobacco Do You Smoke? 0.25 PPD Smoke 5 Cigs (started In 2017) Information not available 11/13/2018 How Many Years Have You Smoked Tobacco? 2 Information not available 11/13/2018 Sex: Unknown Functional Status Question Answer Note LastModified by Organizat ion Details LastModified Time Do you use any illicit or recreational drugs? No Information not available 09/04/2021 Do you or have you ever used any other forms of tobacco or nicotine? No [email or web address] Information not available 09/04/2021 What is your level of alcohol consumption? Occasional scaracco Information not available 11/13/2018 Do you or have you ever used smokeless tobacco? 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 Never used electronic cigarettes Information not available 02/22/2020 What is your exercise level? None Information not available 11/13/2018 Mental Status None recorded. Family History Relationship Description Onset Age of this Age Resolved Age Notes LastModified by Organization Details LastModified Time Maternal Grandmother Diabetes mellitus [email or web address] Not available 2018 09:54:35 Daughter Diabetes mellitus Type 1 diabet ic lcallison Not available 11/13/2018 10:31:13 Paternal Grandfather Sudden -- in sleep around 60s Not available 11/13/2018 10:54:06 Notes:-- No family history f or cancers or coronary artery disease. Medical History No medical history recorded. Gynecological History Statement/Question Response Date of Last Pap Smear 08/26/2013 Obstetrics History GPAL:G 5 P 4 0 1 0 Type Value Full Term 4 Spontaneous 1 Total 5 Immunizations Vaccine Type Date Status Note Provider Zackary michaels and Address Organization Details Recorded Time Influenza, split virus, quadrivalent, preservative 8 completed Gilberto Toro MD [address], [place], [address], [facility] 11/13/2018 10:47:18 Past Encounters Encounter ID Performer Location Encounter Start Date Encounter Closed Date Diagnosis/Indication Diagnosis SNOMED-CT Code Diagnosis ICD10 Code Diagnosis Note [id number] Gilberto Toro MD [place] [facility], [facility] [address] [place] [address] 11/13/2018 09:27:55 11/13/2018 11:25:34 Hyperglycemia 26023457 R73.9 Fatigue 39087431 R53.83 -- consider sleep study if all labs are unremarkab le Edema 358300036 R60.9 (hands & feet) -- periodical ly (none evident today) Migraine 51060487 G43.90 9 (dx'd by PCP in [place] when she was 5 y/o)-- prefers dark and quiet environmen t when she has migraines Paresthesia of hand 3090 60776 R20.2 (bilateral hands) Mixed anxi ety and depressive disorder 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 Chronic constipation 236 192693 K59.09 -- on miralax [id number] Gilberto Toro MD [place] [facility], [facility] [address] [place] [address] 12/22/2018 17:45:37 12/22/2018 19:51:44 Adult health examination 408802445 Z00.00 Fatigue 43229676 R53.83 -- consider sleep study if all labs are unremarkab le Hyperglycemia 36567165 R 73.9 Edema 333781083 R60.9 (hands & feet) -- periodical ly (none evident today) Migraine 86599734 G43.90 9 (dx'd by PCP in [place] when she was 5 y/o)-- prefers dark and quiet environmen t when she has migraines Paresthesia of hand 3090 74730 R20.2 (bilateral hands) Mixed anxi ety and depressive disorder 763900422 F41.8 -- has insomnia Cholelithi asis without obstruction 45123781 K80.20 (dx'd in 2006) -- Asymptomat ic Body mass index 30+ - obesity 095696856 Z68.33 -- will advise weight loss-- pt's BMI today is 33.5 (ideal is between 20-25) Chronic constipation 236 778504 K59.09 -- on miralax Tobacco de pendence, continuous 532412734 F17.290 -- Patient advised to quit smoking because of increased risk for stroke, heart attack, emphysema/ bronchitis , aneurysm, cancers, and premature . Active or passive immunization 018230372 Z23 -- Last Tdap shot was in 2007 Leukocytosis 994817189 D 72.829 -- Recheck CBC 2 weeks after quiting smoking Screening for malignant neoplasm of cervix 781168778 Z12.4 Skin lesion 21909984 L98 .9 (see photo) -- at belly (NT)(right ear keloid) -- will also refer to Derm for eval. [id number] Gilberto Toro MD [facility] [address] [place] [address] 02/22/2020 17:26:01 02/22/2020 19:02:08 Impaired glucose tolerance 3121612 R73.03 Leukocytosis 416791588 D 72.829 -- Recheck CBC 2 weeks after quiting smoking Mixed anxi ety and depressive disorder 683750916 F41.8 -- has insomnia Adult heal th examination 687918228 Z00.00 Hepatitis C screening 41 9630993 Z11.59 Active or passive immunization 711304238 Z23 -- Last Tdap shot was in [id number]o MD [facility], [facility] [address] [place] [address] 05/24/2020 15:39:51 05/24/2020 17:35:03 Impaired glucose tolerance 3136099 R73.03 -- A1c level of 5.5 on 03/03/20-- hypoglycem ia of 67 on 03/03/20 (otherwise normal 3 hr GTT) Leukocytosis 650450952 D 72.829 -- Recheck CBC 2 weeks after quiting smoking Mixed anxi ety and depressive disorder 664875221 F41.8 -- has insomnia Hepatitis C screening 41 1424919 Z11.59 Active or passive immunization 762247523 Z23 -- Last Tdap shot was in 2007 Numbness of face 3466781 09 R20.0 (episodic cheek numbness; no symptoms now) -- no headaches or scalp or visual sx.-- likely from above hypoglycem ia Hypoglycemia 466809063 E 16.2 -- pt has Feeling shaky, sometimes feeling nervous or anxious. -- has unusual sweating-- quite irritabili ty & impatience sometimes- - has palpitatio ns-- feeling lightheade d or dizzy sometimes, numbness of cheeks -- feels hunger when feeling shaky. -- pt will need to limit Carbohydra danielle intake to between 40- 50 gram per meal & also between 120 - 150 grams a day. -- Examples of Carbohydra danielle are: ice-cream, sweet sugar treats, rice, potatoes, sweet potatoes (yams), bananas, corn products (popcorn, corn muffin, corn bread, cornflakes , corn ), oats, flour products (pasta, bread, bagel, muffins, donuts, biscuits, cookies, crackers, pancakes, waffle, cakes, pies &/or Alcohol. [id number] Gilberto Toro MD [facility], [facility] [address] [place] [address] 09/04/2021 17:03:48 09/04/2021 19:06:34 Impaired glucose tolerance 7181640 R73.03 -- A1c level of 5.5 on 03/03/20-- hypoglycem ia of 67 on 03/03/20 (otherwise normal 3 hr GTT) Leukocytosis 707167371 D 72.829 -- Recheck CBC 2 weeks after quiting smoking Mixed anxi ety and depressive disorder 416383903 F41.8 -- has insomnia-- will probably start on med if labs are all good. Hepatitis C screening 41 6838932 Z11.59 Active or passive immunization 302123872 Z23 -- Last Tdap shot was in 2007 Atypical chest pain 1025 05651 R07.89 [id number] Gilberto Toro MD [facility] [address] [place] [address] 09/19/2021 15:54:24 09/19/2021 17:40:50 Atypical chest pain 851802675 R07.89 -- CXR on 09/11/21 was unrevealin g-- symptoms have improved w/ decreasing frequency & severity-- D-dimer lab done at [facility] on 09/11/21, and report pending Impaired g lucose tolerance 2346039 R73.03 -- A1c level of 5.5 on 03/03/20-- hypoglycem ia of 67 on 03/03/20 (otherwise normal 3 hr GTT)-- A1c lab done at [facility] on 09/11/21, and report pending Leukocytosis 972240278 D 72.829 -- Recheck CBC 2 weeks after quiting smoking-- labs done at [facility] in [place] on 09/11/21, and report pending Mixed anxi ety and depressive disorder 512014767 F41.8 -- has insomnia-- will probably start on med if labs are all good.-- labs done at [facility] in [place] on 09/11/21, and report pending Hepatitis C screening 41 3946605 Z11.59 -- labs done at [facility] in [place] on 09/11/21, and report pending Active or passive immunization 978595503 Z23 -- Last Tdap shot was in 2007 Dysphagia 17490876 R13.1 0 Health Concerns Section Related Observation LastModified by Organization Detai ls LastModified Time None Recorded Concern Status LastModified by Organization Details LastModified Time None Recorded Advance Directives Directive N: Payers Insurance Date Sequence Insurance Name Policy Number Policy Gutierrez Covered Member ID Gutierrez Member ID Guarantor Name 11/10/2018 1 [facility] [id number] Dev Renee [id number] Theresa Torres 10/04/2021 1 [facility] [id number] Dev Renee [id number] Theresa Torres Notes Date Note Type Note Provider Name and Address Organization Details Recorded Time 12/22/2018 text/html Patient denies a ny headache/chest discomfort or pain/diaphoresis/b reathing problems/nausea/vo miting/any angina equivalent symptoms/visual changes Gilberto Toro MD [address] [facility] [address], [place], [address], [facility] 12/22/2018 19:49:42 02/22/2020 text/html Pt c/o being anxious. Feels like she is rushed a lot. Cannot multi-task. Patient denies any f/c, headache, visual changes/sx, jaw or neck discomfort, chest discomfort/pain, diaphoresis, breathing symptoms/chest tightness, n/v, any angina equivalent symptoms, etc. Gilberto Toro MD [address] [facility] [address], [place], [address], [facility] 02/22/2020 19:00:38 05/24/2020 text/html Pt comes in for lab testing and eval of occasional bilateral cheek numbness. Patient denies any Headaches, jaw or neck discomfort, left arm pain/left arm discomfort, chest discomfort/pain, diaphoresis, breathing symptoms/chest tightness, indigestion sx, n/v, etc. Gilberto Toro MD [address] [facility] [address], [place], [address], [facility] 05/24/2020 17:30:25 09/04/2021 text/html Pt come for anxiety, heart beating fast, hard time falling asleep, can not concentrate anymore (since May 2021)She has a lot of stressNo SI, HI, hallucinations, Delusions, etc Gilberto Toro MD [address], [place], [address], [facility] 09/04/2021 18:53:00 09/19/2021 text/html Pt comes in for anxiety management & f/u on her labs done on 09/11/21 at [facility] in [place]. Labs are pending (likely from the Vit B1 & B6.Overall pt feels well and has no c/o or any new sx or sx changes. Gilberto Toro MD [address] [place] [address] [address], [place], [address], [facility] 09/19/2021 17:36:09 OBGyn Episode No OBEpisode recorded.
[2025-02-25 05:11] VITALS: BP 120/88; PULSE 121; RESP 14; TEMP 36.7; O2SAT 99
[2025-02-25 05:20] LABS: BEDSIDEPREGUCG Negative (Negative)
[2025-02-25 05:31] LABS: Hematocrit 40.7 % (37.0-47.0); Hemoglobin 13.2 g/dL (12.0-15.0); Immature Granulocyte Percent A 0.3 % (0-0.5); Lymphocytes Absolute Auto 3.41 K/mm3 (0.9-3.2); Mean Corpuscular HGB Conc 32.4 g/dl (32-36); Mean Corpuscular Hemoglobin 27.6 pg (26-34); Mean Corpuscular Volume 85.0 fl (80-100); Nucleated Red Blood Cells Absolute Auto 0.000 K/mm3 (0.0-0.012); Nucleated Red Blood Cells Perc 0.0 % (0.0-0.2); Platelet Count Result 404 k/mm3 (150-375); Red Blood Count 4.79 M/mm3 (4.2-5.4); White Blood Count 11.9 K/mm3 (4.5-10.0)
[2025-02-25 05:38] LABS: Add Urine Microscopic? YES; Appearance Urine Cloudy (Clear); Glucose Urine UA Negative (Negative); Leukocyte Esterase Ur 2+ LEU/UL (Negative); Nitrate Urine Positive (Negative); Non Pathogenic Casts 0-2; Specific Grav Ur 1.017 (1.001-1.035)
[2025-02-25 05:41] LABS: Alanine Aminotransferase 38 U/L (6-35); Albumin Level 4.7 g/dL (3.5-5.1); Alkaline Phosphatase 74 U/L (38-126); Anion Gap 11 mmol/L (4-12); Aspartate Amino Transferase 32 U/L (14-36); Bilirubin,Total 0.3 mg/dL (0.2-1.3); Blood Urea Nitrogen 12 mg/dL (7-17); Calcium 9.8 mg/dL (8.4-10.2); Carbon Dioxide 22 mmol/L (22-30); Chloride 106 mmol/L (98-107); Estimated CRCL calculation 88 ml/min; Estimated Glomerular Filt Rate > 60; Glucose 125 mg/dL (65-110); Lipase 72 U/L (23-300); Potassium 4.1 mmol/L (3.4-5.0); Sodium 139 mmol/L (137-145); Total Protein 8.4 g/dL (6.3-8.2)
[2025-02-25 06:15] VITALS: BP 118/76; PULSE 96; RESP 18; O2SAT 97
[2025-02-25 07:16] VITALS: BP 100/67; PULSE 89; RESP 17; O2SAT 97
[2025-02-25] MEDS: SODIUM CHLORIDE 0.9% IV 1,000 ML 999 ML IV CONT (08:08)
[2025-02-25] MEDS: ONDANSETRON INJ 4 MG/2 ML VIAL IV PUSH (08:08)
[2025-02-25] MEDS: MORPHINE SULFATE (*CRX) 4 MG/ML INJ IV PUSH (08:08)
--- NOTE | 2025-02-25 09:09 | ED.GENADULT ---
HPI - General Adult General Chief complaint: Abdominal Pain Stated complaint: abd pain Time Seen by Provider: 02/25/25 06:17 History of Present Illness HPI narrative: Patient 34-year-old female who presents emergency department chief complaint of abdominal pain. The patient reports he has pain in the right lower quadrant greater out strain with back patient states that she has abdominal pain with sneezing and reports that she has had some burning with urination. The patient denies fever denies diarrhea. The patient reports that she has had a prior appendectomy and a prior cholecystectomy Related Data Allergies Allergy/AdvReac Type Severity Reaction Status Date / Time No Known Allergies Allergy Verified 11/02/20 18:51 Review of Systems Review of Systems: A 10 system review of systems was completed on the patient and is negative except for what is stated in the HPI. Nursing and ancillary documentation was reviewed. [facility] Past Medical History Medical History Acute appendicitis with localized peritonitis without perforation Acute calculous cholecystitis Surgical History Surgical History Hx of cholecystectomy Social History Social History Smoking status: Current every day smoker Alcohol intake: current Exam Narrative: GENERAL: Well-appearing, well-nourished, and in no acute distress. HEAD: Normocephalic, atraumatic. EYES: PERRLA and EOMI. ENT: Nares clear, no rhinorrhea or epistaxis. Mucous membranes moist. NECK: Supple. CHEST: Clear to auscultation. No respiratory distress. HEART: Regular rate and rhythm. No murmur heard. Normal peripheral pulses. ABDOMEN: Soft, diffuse mild tenderness to palpation, nondistended, normal active bowel sounds. EXTREMITIES: Normal range of motion. No edema. SKIN: Warm, dry, no rash. NEURO: No focal deficits. Alert and oriented x3. PSYCH: Normal mood and affect. Course Vital Signs Vital signs: Vital Signs Temperature 36.7 C 02/25/25 05:11 Pulse Rate 121 H 02/25/25 05:11 Respiratory Rate 14 02/25/25 05:11 Blood Pressure 120/88 02/25/25 05:11 Pulse Oximetry 99 02/25/25 05:11 Oxygen Delivery Room Air 02/25/25 05:11 Temperature 36.7 C 02/25/25 05:11 Pulse Rate 89 02/25/25 07:16 Respiratory Rate 17 02/25/25 07:16 Blood Pressure 100/67 02/25/25 07:16 Pulse Oximetry 97 02/25/25 07:16 Oxygen Delivery Room Air 02/25/25 05:11 Medical Decision Making MDM Narrative Medical decision making narrative: Differential diagnosis could intra-abdominal infection, pyelonephritis, ureterolithiasis complete of The laboratory studies showed a urinalysis with 2+ leukocyte esterase and 511 white blood cells and 4+ bacteria CT scan showed inflammation in the right salpinx area ultrasound showed mild right hydrosalpinx. Patient given dose Rocephin will be discharged home on doxycycline and Keflex Vital Signs Vital Signs: Vital Signs Temperature 36.7 C 02/25/25 05:11 Pulse Rate 121 H 02/25/25 05:11 Respiratory Rate 14 02/25/25 05:11 Blood Pressure 120/88 02/25/25 05:11 Pulse Oximetry 99 02/25/25 05:11 Oxygen Delivery Room Air 02/25/25 05:11 Temperature 36.7 C 02/25/25 05:11 Pulse Rate 89 02/25/25 07:16 Respiratory Rate 17 02/25/25 07:16 Blood Pressure 100/67 02/25/25 07:16 Pulse Oximetry 97 02/25/25 07:16 Oxygen Delivery Room Air 02/25/25 05:11 Lab Data 02/25/25 05:22 02/25/25 05:22 Labs: Lab Results 02/25/25 02/25/25 Range/Units 05:18 05:22 WBC 11.9 H (4.5-10.0) K/mm3 RBC 4.79 (4.2-5.4) M/mm3 Hgb 13.2 (12.0-15.0) g/dL Hct 40.7 (37.0-47.0) % MCV 85.0 (80-100) fl MCH 27.6 (26-34) pg MCHC 32.4 (32-36) g/dl RDW 14.6 H (11.5-14.5) % Plt Count 404 H (150-375) k/mm3 MPV 9.8 (7.4-10.4) fl Immature Gran % (Auto) 0.3 (0-0.5) % Neut % (Auto) 62.7 (45.5-73.1) % Lymph % (Auto) 28.8 (18.3-44.2) % [place] % (Auto) 5.5 (2.6-8.5) % Eos % (Auto) 2.4 (0-4.4) % Baso % (Auto) 0.3 (0.2-1.2) % Lymph # (Auto) 3.41 H (0.9-3.2) K/mm3 [place] # (Auto) 0.7 H (0.1-0.6) K/mm3 Eos # (Auto) 0.3 (0-0.3) K/mm3 Baso # (Auto) 0.0 (0.0-0.1) K/mm3 Abs Immat Gran (auto) 0.03 (0.00-0.031) K/mm3 Absolute Neuts (auto) 7.4 H (1.3-6.7) K/mm3 Absolute Nucleated RBC 0.000 (0.0-0.012) K/mm3 Nucleated RBC % 0.0 (0.0-0.2) % Sodium 139 (137-145) mmol/L Potassium 4.1 (3.4-5.0) mmol/L Chloride 106 (98-107) mmol/L Carbon Dioxide 22 (22-30) mmol/L Anion Gap 11 (4-12) mmol/L BUN 12 (7-17) mg/dL Creatinine 0.78 (0.7-1.0) mg/dL Estim Creat Clear Calc 88 ml/min Estimated GFR > 60 (59 - ) Glucose 125 H (65-110) mg/dL Calcium 9.8 (8.4-10.2) mg/dL Total Bilirubin 0.3 (0.2-1.3) mg/dL AST 32 (14-36) U/L ALT 38 H (6-35) U/L Alkaline Phosphatase 74 (38-126) U/L Total Protein 8.4 H (6.3-8.2) g/dL Albumin 4.7 (3.5-5.1) g/dL Lipase 72 (23-300) U/L Urine Color Yellow (Yellow) Urine Appearance Cloudy H (Clear) Urine pH 5.5 (5.0-9.0) Ur Specific Manson 1.017 (1.001-1.035) Urine Protein Trace (Negative) mg/dL Urine Glucose (UA) Negative (Negative) mg/dL Urine Ketones Negative (Negative) mg/dL Ur Blood (Man) 2+ H (Negative) Urine Nitrate Positive H (Negative) Urine Bilirubin Negative (Negative) Urine Urobilinogen 0.2 (<2.0) mg/dL Leukocyte Esterase Rfl 2+ H (Negative) ENRIQUE/UL Urine RBC 0-2 (0-2) /hpf Urine WBC 51-100 H (0-3) /hpf Ur Squamous Epith Cells Few (Few) /hpf Urine Bacteria 4+ H /hpf Urine Casts 0-2 POC Urine HCG, Qual Negative (Negative) Discharge Plan Discharge Clinical Impression: UTI (urinary tract infection), Hydrosalpinx Patient Disposition: Home Condition: Stable Instructions: Antibiotic Form, Urinary Tract Infection in Women (ED), Abdominal Pain (ED) Patient Language: [place] Prescriptions: New doxycycline hyclate 100 mg tablet 100 mg PO BID Qty: 14 0RF cephalexin 500 mg capsule 500 mg PO Q12H 7 Days Qty: 14 0RF No Action cyclobenzaprine 10 mg tablet 10 mg PO TID PRN (Reason: muscle spasm) Qty: 10 0RF Follow-up/Referrals: Cortez,MD Shafer ([place]) [Primary Care Provider] - Time of Disposition: 11:04
[2025-02-25] MEDS: LIDOCAINE 1% LOCAL INJ 10 ML VIAL (11:24)
[2025-02-25] MEDS: cefTRIAXone 1 GM VIAL IM (11:24)
[2025-02-25 11:32] VITALS: BP 103/66; PULSE 90; RESP 16; O2SAT 99
== END 2025-02-25 11:34 | disposition home or self-care (01) ==
PROVIDERS: Student in an Organized Health Care Education/Training Program; Emergency Provider Emergency Medicine; PCP Internal Medicine
DX: N39.0 Urinary tract infection, site not specified (principal); N70.11 Chronic salpingitis; F17.200 Nicotine dependence, unspecified, uncomplicated
CPT/HCPCS: 36415; 74177; 76830; 76856; 80053; 81001; 81025; 83690; 85025; 87077; 87086; 87186; 96361; 96372; 96374; 96375; 99284; J0696; J2003; J2270; J2405; J7030; Q9967